=== PATIENT | male | born 1940 | race Hispanic/Latino ===

== ENCOUNTER 2016-06-05 07:51 | Inpatient (IN) | payer MEDICARE ==
[2016-06-05 07:54] VITALS: BMI 37.1
--- NOTE | 2016-06-05 07:57 | ED PDOC ---
Arrival/HPI - General Chief Complaint: Weakness/Neurological Deficit Time Seen by Provider: 06/05/16 07:53 Historian: Patient - History of Present Illness Narrative History of Present Illness (Text): 06/05/16 07:54 A 76 year old male presents to the emergency room for the evaluation of slurred speech and left sided facial droop since yesterday afternoon. Patient denies any weakness, numbness, headaches, dizziness, chest pain, shortness of breath, nausea, vomiting, diarrhea, or any other complaints. Patient reports that he was still experiencing the symptoms when he woke up this morning and decided to come to the ED. Patient states that he took 2 Aspirin before coming to the ED. Patient denies a history of smoking and notes that he is an occasional drinker. PMD: Dr. Haley Time/Duration: 24 hours Symptom Onset: Sudden Symptom Course: Unchanged Severity Level: Moderate Activities at Onset: Light Modifying Factors (Text): none Context: Home Associated Symptoms (Text): none 06/05/16 08:40 Yesterday afternoon the patient developed a left-sided facial droop along with slurred speech. He went to bed with the symptoms, and woke up this morning and still had symptoms so he decided to come to the emergency department. He did take aspirin prior to arrival this morning. No difficulty with ADLs. No headache. No chest pain palpitations or dyspnea. No nausea or vomiting. No numbness. No weakness. Patient is not a TPA candidate as his symptoms are too long Past Medical History - Provider Review Nursing Documentation Reviewed: Yes - Infectious Disease Hx of Infectious Diseases: None - Tetanus Immunization Tetanus Immunization: Up to Date - Cardiac Hx Hypertension: Yes Hx Pacemaker: No - Pulmonary Hx Respiratory Disorders: No - Neurological Hx Paralysis: No - HEENT Hx HEENT Disorder: No Hx Cataracts: Yes - Renal Hx Kidney Stones: Yes - Endocrine/Metabolic Hx Endocrine Disorders: No - Hematological/Oncological Hx Blood Transfusions: No - Integumentary Hx Dermatological Disorder: No - Musculoskeletal/Rheumatological Hx Musculoskeletal Disorders: Yes - Gastrointestinal Hx Gastrointestinal Disorders: No - Genitourinary/Gynecological Hx Genitourinary Disorders: Yes Other/Comment: bladder stones - Psychiatric Hx Emotional Abuse: No Hx Physical Abuse: No Hx Substance Use: No - Surgical History Other/Comment: Macular hole repair, umbilical hernia repair, adnoidectomy - Anesthesia Hx Anesthesia Reactions: No Hx Malignant Hyperthermia: No - Suicidal Assessment Feels Threatened In Home Enviroment: No Family/Social History - Physician Review Nursing Documentation Reviewed: Yes Family/Social History: No Known Family HX Smoking Status: Never Smoked Hx Alcohol Use: No Hx Substance Use: No Hx Substance Use Treatment: No Allergies/Home Meds Allergies/Adverse Reactions: Allergies milk Adverse Reaction (Verified 06/05/16 08:15) CONGESTION Home Medications: Home Meds Medication Instructions Recorded Confirmed Metoprolol Succinate [Toprol XL] 25 mg PO QAM 08/14/12 06/05/16 Spironolactone 25 mg PO BID 08/14/12 06/05/16 Potassium Chloride [K-Dur 20] 20 meq PO DAILY 09/06/13 06/05/16 Furosemide 40 mg PO BID 01/20/14 06/05/16 Cephalexin [Keflex] 500 mg PO TID 06/05/16 06/05/16 Review of Systems - Physician Review All systems were reviewed & negative as marked: Yes - Review of Systems Respiratory: absent: SOB Cardiovascular: absent: Chest Pain, Palpitations, Syncope Gastrointestinal: absent: Abdominal Pain, Diarrhea, Nausea, Vomiting Neurological: Speech Changes (Slurred speech), Facial Droop (Left sided). absent: Headache, Dizziness, Focal Weakness, Seizure, Other (Numbness) Physical Exam Vital Signs Reviewed: Yes Vital Signs Temp Pulse Resp BP Pulse Ox 06/05/16 09:35 67 18 153/95 H 95 06/05/16 07:54 97.6 F 81 20 170/102 H 96 Temperature: Afebrile Blood Pressure: Hypertensive Pulse: Regular Respiratory Rate: Normal Appearance: Positive for: Well-Appearing, Non-Toxic, Comfortable Pain Distress: None Mental Status: Positive for: Alert and Oriented X 3 - Systems Exam Head: Present: Atraumatic, Normocephalic Pupils: Present: PERRL Extroacular Muscles: Present: EOMI Conjunctiva: Present: Normal Ears: Present: NORMAL TM, Normal Canal. No: Erythema Mouth: Present: Moist Mucous Membranes Pharnyx: No: ERYTHEMA, EXUDATE, TONSILS ENLARGED Neck: Present: Normal Range of Motion. No: MIDLINE TENDERNESS, Paraspinal Tenderness Respiratory/Chest: Present: Clear to Auscultation, Good Air Exchange, Decreased Breath Sounds. No: Respiratory Distress, Accessory Muscle Use Cardiovascular: Present: Regular Rate and Rhythm, Normal S1, S2. No: Murmurs Abdomen: Present: Normal Bowel Sounds. No: Tenderness, Distention, Peritoneal Signs, Rebound, Guarding Back: No: CVA Tenderness, Midline Tenderness Upper Extremity: Present: Normal Inspection, Normal ROM, NORMAL PULSES, Neurovascularly Intact. No: Tenderness, Swelling Lower Extremity: Present: NORMAL PULSES, Normal ROM, Neurovascularly Intact. No : Normal Inspection, Tenderness, Swelling Neurological: Present: GCS=15, CN II-XII Intact, Motor Func Grossly Intact, Normal Cerebellar Funct, Memory Normal, Other (Left sided facial droop). No: Speech Normal (Slurred speech) Skin: Present: Warm, Dry, Normal Color. No: Rashes Psychiatric: Present: Alert, Oriented x 3, Normal Insight, Normal Concentration Medical Decision Making ED Course and Treatment: 06/05/16 08:01 Impression: A 76 year old male with slurred speech and left sided facial droop since yesterday. Slurred speech and left sided facial droop noted on PE. Plan: -- EKG -- Head CT -- CXR -- Labs Progress Notes: 06/05/16 08:43 EKG shows normal sinus rhythm rate approximately 75 with a primary AV block and right bundle branch block with no acute ST or T-wave changes and no old available for comparison - Lab Interpretations Lab Results: 06/05/16 07:30 06/05/16 07:30 Lab Results 06/05/16 09:20: Urine Color Yellow, Urine Appearance Clear, Urine pH 6.0, Ur Specific Philo 1.010, Urine Protein Negative, Urine Glucose (UA) Negative, Urine Ketones Negative, Urine Blood Trace-intact H, Urine Nitrate Negative, Urine Bilirubin Negative, Urine Urobilinogen 0.2, Ur Leukocyte Esterase Negative , Urine RBC 0 - 2, Urine WBC 1 - 3, Ur Epithelial Cells 1 - 3, Urine Bacteria Few 06/05/16 07:30: Sodium 138, Potassium 4.0, Chloride 103, Carbon Dioxide 24, Anion Gap 15, BUN 17, Creatinine 0.8, Est GFR ( Amer) > 60, Est GFR (Non- Af Amer) > 60, Random Glucose 150 H, Calcium 9.3, Magnesium 1.7, Total Bilirubin 0.8, AST 20, ALT 38, Alkaline Phosphatase 59, Lactate Dehydrogenase 393, Total Creatine Kinase 56, Troponin I < 0.01, Total Protein 7.4, Albumin 3.9 , Globulin 3.5, Albumin/Globulin Ratio 1.1 06/05/16 07:30: PT 10.8, INR 1.00, APTT 26.5 06/05/16 07:30: WBC 7.4, RBC 4.89, Hgb 15.5, Hct 44.1, MCV 90.2, MCH 31.7, MCHC 35.1, RDW 13.7, Plt Count 185, MPV 9.9, Gran % 66.3, Lymph % (Auto) 23.7, Humphreys % (Auto) 6.7 H, Eos % (Auto) 3.0, Baso % (Auto) 0.3, Gran # 4.88, Lymph # 1.7, Humphreys # 0.5, Eos # 0.2, Baso # 0.02 I have reviewed the lab results: Yes - RAD Interpretation Radiology Orders: 06/05/16 07:53 HEAD W/O CONTRAST [CT] Stat 06/05/16 07:54 CHEST PORTABLE [RAD] Stat CT scan of the head as read by the radiologist shows no acute findings Mechanical Lead: Radiologist NIHSS Scale (Irene) Time Performed: 08:04 - How Severe is the Stoke Baseline Level of Consciousness: 0=Alert LOC to Questions: 0=Both comments correct LOC to commands: 0=Obeys both correctly Best Gaze: 0=Normal Visual: 0=No visual loss Facial: 1=Minor asymmetry Motor Arm - Left: 0=No drift Motor Arm - Right: 0=No drift Motor Leg - Left: 0=No drift Motor Leg - Right: 0=No drift Limb Ataxia: 0=Absent Sensory: 0=Normal Best Language: 0=No aphasia Dysarthia: 1=Mild to moderate slurring Extinction & Inattention (Neglect): 0=Normal, no object Score: 2 Risk Level: Minor Stroke Risk - Notes Notes: Patient is not a TPA candidate since symptoms have lasted more than 15 hrs. - Scribe Statement The provider has reviewed the documentation as recorded by the Cricketibharriet Jefferson Provider Scribe Attestation: All medical record entries made by the Scribe were at my direction and personally dictated by me. I have reviewed the chart and agree that the record accurately reflects my personal performance of the history, physical exam, medical decision making, and the department course for this patient. I have also personally directed, reviewed, and agree with the discharge instructions and disposition. Disposition/Present on Arrival - Present on Arrival Any Indicators Present on Arrival: No History of DVT/PE: No History of Uncontrolled Diabetes: No Urinary Catheter: No History of Decub. Ulcer: No History Surgical Site Infection Following: None - Disposition Have Diagnosis and Disposition been Completed?: Yes Diagnosis: Cerebrovascular accident Disposition: HOSPITALIZED Disposition Time: 10:08 Patient Plan: Observation, Telemetry Condition: GOOD Referrals: Peng Haley MD [Primary Care Provider] - Follow up with primary
[2016-06-05 08:07] LABS: ADD MANUAL DIFF? NO
[2016-06-05 08:11] LABS: BASO # 0.02 K/mm3 (0.0-2.0); BASO % 0.3 % (0.0-3.0); EOS # 0.2 (0.0-0.7); GRAN # 4.88 (1.4-6.5); GRAN % 66.3 % (50.0-68.0); HEMATOCRIT 44.1 % (42.0-52.0); LYMPH # 1.7 (1.2-3.4); LYMPH % 23.7 % (22.0-35.0); MEAN CELL VOLUME 90.2 fL (80.0-105.0); MEAN CORPUSCULAR HEMOGLOBIN 31.7 pg (25.0-35.0); MEAN CORPUSCULAR HGB CONC 35.1 g/dl (31.0-37.0); MEAN PLATELET VOLUME 9.9 fl (7.0-11.0); MONO # 0.5 (0.1-0.6); MONO % 6.7 % (1.0-6.0); PLATELET COUNT 185 10^3/uL (120.0-450.0); RED CELL DISTRIBUTION WIDTH 13.7 % (11.5-14.5); WHITE BLOOD COUNT 7.4 10^3/ul (4.5-11.0)
[2016-06-05 08:25] LABS: PARTIAL THROMBOPLASTIN TIME 26.5 Seconds (23.7-30.8)
[2016-06-05 08:29] LABS: ALB/GLOB RATIO 1.1 (1.1-1.8); ALKALINE PHOSPHATASE 59 U/L (38-133); ALT/SGPT 38 U/L (7-56); AST/SGOT 20 U/L (15-59); BILIRUBIN,TOTAL 0.8 mg/dL (0.2-1.3); BLOOD UREA NITROGEN 17 mg/dL (7-21); CALCIUM 9.3 mg/dL (8.4-10.5); CARBON DIOXIDE 24 mmol/L (21-33); CHLORIDE 103 mmol/L (98-107); GFR AFRICAN-AMERICAN > 60; GLUCOSE,RANDOM 150 mg/dL (70-110); MAGNESIUM 1.7 mg/dL (1.7-2.2); SODIUM 138 mmol/L (132-148); TOTAL PROTEIN 7.4 g/dL (5.8-8.3)
[2016-06-05 08:42] LABS: TROPONIN I < 0.01 ng/mL
--- NOTE | 2016-06-05 08:53 | CT ---
PROCEDURE: CT HEAD WITHOUT CONTRAST. HISTORY: CVA COMPARISON: None available. TECHNIQUE: Axial computed tomography images were obtained through the head/brain without intravenous contrast. Radiation dose: Total exam DLP = 822.62 mGy-cm. This CT exam was performed using one or more of the following dose reduction techniques: Automated exposure control, adjustment of the mA and/or kV according to patient size, and/or use of iterative reconstruction technique. FINDINGS: HEMORRHAGE: No intracranial hemorrhage. BRAIN: Mild age-appropriate cerebral atrophy. No intracranial mass identified. VENTRICLES: Unremarkable. No hydrocephalus. CALVARIUM: Unremarkable. PARANASAL SINUSES: Unremarkable as visualized. No significant inflammatory changes. MASTOID AIR CELLS: Unremarkable as visualized. No inflammatory changes. OTHER FINDINGS: None. IMPRESSION: No intracranial mass, hemorrhage or evidence of acute infarct.
--- NOTE | 2016-06-05 09:25 | RAD ---
HISTORY: CVA COMPARISON: No prior. FINDINGS: LUNGS: No active pulmonary disease. PLEURA: No significant pleural effusion identified, no pneumothorax apparent. CARDIOVASCULAR: The heart appears enlarged. This may be artifactual due to portable technique as well as epicardial fat on the right side as demonstrated on CT examination of 12/01/2014. Sternotomy wires are noted. OSSEOUS STRUCTURES: No significant abnormalities. VISUALIZED UPPER ABDOMEN: Normal. OTHER FINDINGS: None. IMPRESSION: Apparent cardiomegaly, the the extent of which may be augmented by right epicardial fat. No acute infiltrate.
[2016-06-05 09:36] LABS: URINE BILIRUBIN NEGATIVE (NEGATIVE); URINE BLOOD TRACE-INTACT (NEGATIVE); URINE GLUCOSE (UA) NEGATIVE (NEGATIVE); URINE KETONE NEGATIVE (NEGATIVE); URINE LEUKOCYTE ESTERASE NEGATIVE Leu/uL (NEGATIVE); URINE PROTEIN NEGATIVE mg/dL (<30 mg/dL); URINE UROBILINOGEN 0.2 E.U./dL (<1 E.U./dL)
[2016-06-05 09:39] LABS: URINE APPEARANCE CLEAR (CLEAR); URINE COLOR YELLOW (YELLOW)
[2016-06-05 09:54] LABS: URINE BACTERIA FEW (NEG); URINE RBC 0 - 2 /hpf (0-2)
--- NOTE | 2016-06-05 11:22 | CP.PCM.HP ---
<Omid Gibson - Last Filed: 06/05/16 18:01> History of Present Illness - History of Present Illness History of Present Illness: cc: "slurred speech and L sided facial droop" HPI: Patient is a 76yo male with past medical history of DM type 2, HTN, CAD, Arthritis, nephrolithiasis that presented to ED c/o 1 day history of slurred speech and L sided facial droop. Patient noticed that his face had become puffy yesterday afternoon and shortly after at approximately 3:00pm noticed slurring of his speech. He reported taking 325mg of aspirin yesterday followed by another 325mg of aspirin the following morning. This morning he reported waking up with left-sided facial droop and decided to come into the hospital. Patient reported extensive family history of CVA and cardiac disorders in the family. In the ED, Head CT revealed no acute intracranial abnormalities. In recent travel history, he admitted to going to [place] over for a hunting trip. He admits slight sensitivity to light and diarrhea since yesterday. Denies chest pain, palpitations, SOB, abdominal pain, nausea, vomiting, headache, dizziness, vision changes, constipation, numbness/tingling, rashes, changes in sensation. 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 lives with , retired. Family Hx: mom - stroke, HTN. uncle - stroke. brother - stroke. paternal family - [place] Medications: keflex, acetaminophen/codeine, spironolactone, metoprolol, furosemide, potassium chloride PMD: Dr. Haley Present on Admission - Present on Admission Any Indicators Present on Admission: No Past Patient History - Infectious Disease Hx of Infectious Diseases: None - Tetanus Immunizations Tetanus Immunization: Up to Date - Past Social History Smoking Status: Never Smoked - CARDIAC Hx Hypertension: Yes Hx Pacemaker: No - PULMONARY Hx Respiratory Disorders: No - NEUROLOGICAL Hx Paralysis: No - HEENT Hx HEENT Problems: No Hx Cataracts: Yes - RENAL Hx Kidney Stones: Yes - ENDOCRINE/METABOLIC Hx Endocrine Disorders: No - HEMATOLOGICAL/ONCOLOGICAL Hx Blood Transfusions: No - INTEGUMENTARY Hx Dermatological Problems: No - MUSCULOSKELETAL/RHEUMATOLOGICAL Hx Musculoskeletal Disorders: Yes - GASTROINTESTINAL Hx Gastrointestinal Disorders: No - GENITOURINARY/GYNECOLOGICAL Hx Genitourinary Disorders: Yes Other/Comment: bladder stones - PSYCHIATRIC Hx Emotional Abuse: No Hx Physical Abuse: No Hx Substance Use: No - SURGICAL HISTORY Other/Comment: Macular hole repair, umbilical hernia repair, adnoidectomy - ANESTHESIA Hx Anesthesia Reactions: No Hx Malignant Hyperthermia: No Meds Allergies/Adverse Reactions: Allergies Allergy/AdvReac Type Severity Reaction Status Date / Time milk AdvReac CONGESTION Verified 06/05/16 08:15 Physical Exam - Constitutional Appears: Non-toxic, No Acute Distress - Head Exam Head Exam: ATRAUMATIC, NORMAL INSPECTION, NORMOCEPHALIC - Eye Exam Eye Exam: EOMI, PERRL - Neck Exam Neck exam: Positive for: Normal Inspection - Respiratory Exam Respiratory Exam: Clear to Auscultation Bilateral. absent: Rales, Rhonchi, Wheezes - Cardiovascular Exam Cardiovascular Exam: RRR, +S1, +S2. absent: Diastolic murmur, Gallop, JVD, Rubs , Systolic Murmur - GI/Abdominal Exam GI & Abdominal Exam: Normal Bowel Sounds, Soft. absent: Distended, Firm, Guarding, Rebound, Tenderness - Extremities Exam Extremities exam: Positive for: normal inspection. Negative for: pedal edema - Neurological Exam Neurological exam: Alert, Oriented x3 Additional comments: left-sided facial droop slurred speech motor strength 5/5 in bilateral upper and lower extremities sensation intact throughout PERRLA EOMI - Psychiatric Exam Psychiatric exam: Normal Affect, Normal Mood - Skin Skin Exam: Dry, Intact, Warm Additional comments: bilateral lower extremity cellulitis Results - Vital Signs Recent Vital Signs: Last Vital Signs Temp 97.6 F 06/05/16 07:54 Pulse 67 06/05/16 09:35 Resp 18 06/05/16 09:35 BP 153/95 H 06/05/16 09:35 Pulse Ox 95 06/05/16 09:35 - Labs Result Diagrams: 06/05/16 07:30 06/05/16 07:30 Assessment & Plan - Assessment and Plan (Free Text) Plan: 76yo male with history of HTN, DMT2, CAD, Arthritis presents c/o left-sided facial droop and slurred speech for 1 day prior to presentation 1. CVA -CT Head reviewed; revealed no acute intracranial abnormalities -MRI without contrast pending -Carotid doppler pending -Echocardiogram pending -Pending: A1C, lipid panel, TSH -EKG reviewed -Aspiration precautions -Neurochecks q4h -Physical therapy eval -Swallow eval -Neurology consulted - Dr. Mendosa -Cardiology consulted - Dr. Herrera 2. Hypertension -Continue home medications 3. CAD -Continue metoprolol, ASA, lipitor 4. DM type 2 -Fingersticks ACHS -NPO pending swallow eval -A1C pending 5. DVT/GI prophylaxis -Lovenox/Protonix Case discussed with attending, Dr. Haley - Date & Time Date: 06/05/16 Time: 14:23 <Peng Haley - Last Filed: 07/13/16 08:14> Results - Vital Signs Recent Vital Signs: Last Vital Signs Temp 98.1 F 06/07/16 12:00 Pulse 82 06/07/16 12:00 Resp 20 06/07/16 12:00 BP 127/71 06/07/16 12:00 Pulse Ox 96 06/07/16 06:00 - Labs Result Diagrams: 06/07/16 05:00 06/07/16 05:00 Attending/Attestation - Attestation I have personally seen and examined this patient.: Yes I have fully participated in the care of the patient.: Yes I have reviewed all pertinent clinical information: Yes Notes (Text): 07/13/16 08:14 Medical record note made by the resident after discussion with my direction and input after the patient was personally seen and examined by me. I have reviewed the chart and agree that the record reflects my personal performance of history, physical, data review and course for the patient that I have planned.
[2016-06-05 12:10] LABS: CHOLESTEROL 136 mg/dL (130-200)
--- NOTE | 2016-06-05 16:46 | US ---
PROCEDURE: Bilateral carotid artery duplex ultrasound HISTORY: Carotid stenosis PHYSICIAN(S): Jakc Bond MD. TECHNIQUE: Duplex sonography and color-flow Doppler were used to evaluate the carotid bifurcations and limited segments of the vertebral arteries bilaterally. The exam is somewhat limited by tortuous vessels. FINDINGS: There is mild smooth heterogeneous plaque noted at the carotid bifurcations bilaterally. The peak systolic velocity in the proximal right internal carotid artery is 76 cm/sec. This corresponds to a 20 to 39% proximal right ICA stenosis. Normal systolic velocities are noted in the proximal right external carotid artery. There is antegrade flow in the right vertebral artery. The peak systolic velocity in the proximal left internal carotid artery is 72 cm/sec. This corresponds to a 20 to 39% proximal left ICA stenosis. Normal systolic velocities are noted in the proximal left external carotid artery. There is antegrade flow in the left vertebral artery. IMPRESSION: 1. Bilateral 20-39% proximal ICA stenoses. 2. Antegrade flow in both vertebral arteries.
--- NOTE | 2016-06-05 18:15 | MRI ---
PROCEDURE: MRI BRAIN WITHOUT CONTRAST HISTORY: r/o CVA COMPARISON: Noncontrast head CT from the same day and MRI brain without contrast from 07/27/2015 TECHNIQUE: Multiplanar, multisequence MR images of the brain were obtained without intravenous contrast enhancement. FINDINGS: HEMORRHAGE: None DWI: There are focal areas of restricted diffusion in the right barry radiata and right posterior basal ganglia. BRAIN PARENCHYMA: There are moderate chronic microangiopathic changes. There are old lacunar infarctions in bilateral centrum semiovale. There is no mass, mass effect or abnormal extra-axial fluid collection. The midline sagittal structures are normal. VENTRICLES: There is moderate age-related global parenchymal volume loss and proportionate enlargement of the ventricles and cortical sulci. CRANIUM: There is normal bone marrow signal pattern. ORBITS: Grossly unremarkable. PARANASAL SINUSES/MASTOIDS: There is mild mucosal thickening in the ethmoid air cells. The remaining included paranasal sinuses and mastoid air cells are predominantly clear. VASCULAR SYSTEM: There are normal signal voids in the larger intracranial arteries. OTHER FINDINGS: None. IMPRESSION: Acute infarctions in the right barry radiata and right posterior basal ganglia. Moderate chronic microangiopathic changes and moderate age-related global parenchymal volume loss. The ordering resident Dr Omid Gibson was page by the mobile equipment operator but did not return the page as of 6:09 p.m. on 06/05/2016.
[2016-06-06 06:01] VITALS: RESP 20
[2016-06-06 07:15] LABS: ADD MANUAL DIFF? NO
[2016-06-06 07:24] LABS: BASO # 0.02 K/mm3 (0.0-2.0); BASO % 0.3 % (0.0-3.0); EOS # 0.3 (0.0-0.7); EOS % 3.3 % (1.5-5.0); GRAN # 5.17 (1.4-6.5); GRAN % 65.1 % (50.0-68.0); HEMATOCRIT 44.9 % (42.0-52.0); LYMPH # 1.8 (1.2-3.4); MEAN CELL VOLUME 90.2 fL (80.0-105.0); MEAN CORPUSCULAR HEMOGLOBIN 31.3 pg (25.0-35.0); MEAN CORPUSCULAR HGB CONC 34.7 g/dl (31.0-37.0); MEAN PLATELET VOLUME 9.8 fl (7.0-11.0); MONO # 0.7 (0.1-0.6); MONO % 8.3 % (1.0-6.0); PLATELET COUNT 202 10^3/uL (120.0-450.0); RED CELL DISTRIBUTION WIDTH 13.7 % (11.5-14.5); WHITE BLOOD COUNT 7.9 10^3/ul (4.5-11.0)
[2016-06-06 07:39] LABS: ALB/GLOB RATIO 1.1 (1.1-1.8); ALKALINE PHOSPHATASE 55 U/L (38-133); ALT/SGPT 31 U/L (7-56); AST/SGOT 28 U/L (15-59); BILIRUBIN,TOTAL 1.1 mg/dL (0.2-1.3); BLOOD UREA NITROGEN 16 mg/dL (7-21); CALCIUM 9.1 mg/dL (8.4-10.5); CARBON DIOXIDE 26 mmol/L (21-33); CHLORIDE 103 mmol/L (95-110); GFR AFRICAN-AMERICAN > 60; GLUCOSE,RANDOM 122 mg/dL (70-110); POTASSIUM 4.4 mmol/L (3.6-5.0); SODIUM 140 mmol/L (132-148); TOTAL PROTEIN 7.4 g/dL (5.8-8.3)
[2016-06-06] MEDS ORDERED: Metoprolol Succinate 25 mg XL Tab PO SCH (10:00)
[2016-06-06] MEDS ORDERED: Enoxaparin 30 mg Syringe SC SCH (10:00)
[2016-06-06] MEDS: Enoxaparin 40 mg Syringe SC SCH (11:02)
--- NOTE | 2016-06-06 11:23 | CP.PCM.PN ---
<Omid Gibson - Last Filed: 06/06/16 13:07> Subjective - Date & Time of Evaluation Date of Evaluation: 06/06/16 Time of Evaluation: 11:19 - Subjective Subjective: Medicine progress note - Omid Gibson PGY1 Patient seen and examined at bedside this morning. No acute overnight events or new complaints reported. Patient is eating and sleep well. Discussed results of MRI and current workup/plan. Patient to be seen by neurology. Denies chest pain , palpitations, SOB, abdominal pain, nausea, vomiting. Objective - Vital Signs/Intake and Output Vital Signs (last 24 hours): Temp Pulse Resp BP Pulse Ox 97.7 F 69 20 133/75 100 06/06/16 06:00 06/06/16 11:01 06/06/16 06:00 06/06/16 11:01 06/06/16 06:00 Intake and Output: 06/06/16 06/06/16 06:59 18:59 Intake Total 360 Output Total 525 Balance -165 - Medications Medications: Current Medications Aspirin (Aspirin) 325 mg PO DAILY [facility] Last Admin: 06/06/16 11:01 Dose: 325 mg Atorvastatin Calcium (Lipitor) 40 mg PO DIN [facility] Clopidogrel Bisulfate (Plavix) 75 mg PO DAILY [facility] Last Admin: 06/06/16 11:01 Dose: 75 mg Enoxaparin Sodium (Lovenox) 40 mg SC DAILY [facility] Last Admin: 06/06/16 11:02 Dose: 40 mg Furosemide (Lasix) 40 mg PO BID [facility] Metoprolol Succinate (Toprol Xl) 25 mg PO QAM [facility] Last Admin: 06/06/16 11:01 Dose: 25 mg Pantoprazole Sodium (Protonix Inj) 40 mg IVP DAILY [facility] Last Admin: 06/06/16 11:04 Dose: 40 mg Spironolactone (Aldactone) 25 mg PO BID [facility] - Labs Labs: 06/06/16 06:30 06/06/16 06:30 PT 10.8 Seconds (9.9-11.8) 06/05/16 07:30 INR 1.00 (0.93-1.08) 06/05/16 07:30 APTT 26.5 Seconds (23.7-30.8) 06/05/16 07:30 - Constitutional Appears: Well, Non-toxic, No Acute Distress - Head Exam Head Exam: ATRAUMATIC, NORMAL INSPECTION, NORMOCEPHALIC - Eye Exam Eye Exam: EOMI, PERRL - ENT Exam ENT Exam: Mucous Membranes Moist - Neck Exam Neck Exam: Normal Inspection - Respiratory Exam Respiratory Exam: Clear to Ausculation Bilateral. absent: Rales, Rhonchi, Wheezes - Cardiovascular Exam Cardiovascular Exam: REGULAR RHYTHM, +S1, +S2. absent: Gallop, Rubs, Murmur - GI/Abdominal Exam GI & Abdominal Exam: Soft, Normal Bowel Sounds. absent: Distended, Firm, Guarding, Tenderness - Neurological Exam Neurological Exam: Alert, Awake, Oriented x3 Additional comments: left-sided facial droop slurred speech motor strength 5/5 in bilateral upper and lower extremities sensation intact throughout PERRLA EOMI - Psychiatric Exam Psychiatric exam: Normal Affect, Normal Mood - Skin Skin Exam: Dry, Intact, Warm Additional comments: bilateral lower extremity cellulitis Assessment and Plan - Assessment and Plan (Free Text) Plan: 76yo male with history of HTN, DMT2, CAD, Arthritis presents c/o left-sided facial droop and slurred speech for 1 day prior to presentation 1. CVA -CT Head reviewed; revealed no acute intracranial abnormalities -MRI without contrast reviewed; acute infarct in the right barry radiata and right posterior basal ganglia; see full report -Carotid doppler reviewed; bilateral 20-39% proximal ICA stenosis; antegrade flow in both vertebral arteries; see full report -Echocardiogram pending -A1C, lipid panel, TSH reviewed -EKG reviewed -Aspiration precautions -Neurochecks q4h -Physical therapy eval/treat -Swallow eval reviewed -Speech eval -Continue ASA, plavix, lipitor -Dysphagia diet with nectar thick liquids as per swallow eval -Neurology consulted - Dr. Mendosa -Cardiology consulted - Dr. Herrera 2. Hypertension -Continue home medications 3. CAD -Continue metoprolol, ASA, lipitor 4. DM type 2 -Fingersticks ACHS -NPO pending swallow eval -A1C elevated, consistent with DM2 5. DVT/GI prophylaxis -Lovenox/Protonix Case discussed with attending, Dr. Haley <Peng Haley - Last Filed: 07/13/16 08:15> Objective - Vital Signs/Intake and Output Vital Signs (last 24 hours): Temp Pulse Resp BP Pulse Ox 98.1 F 82 20 127/71 96 06/07/16 12:00 06/07/16 12:00 06/07/16 12:00 06/07/16 12:00 06/07/16 06:00 - Labs Labs: 06/07/16 05:00 06/07/16 05:00 PT 10.8 Seconds (9.9-11.8) 06/05/16 07:30 INR 1.00 (0.93-1.08) 06/05/16 07:30 APTT 26.5 Seconds (23.7-30.8) 06/05/16 07:30 Attending/Attestation - Attestation I have personally seen and examined this patient.: Yes I have fully participated in the care of the patient.: Yes I have reviewed all pertinent clinical information, including history, physical exam and plan: Yes Notes (Text): 07/13/16 08:15 Medical record note made by the resident after discussion with my direction and input after the patient was personally seen and examined by me. I have reviewed the chart and agree that the record reflects my personal performance of history, physical, data review and course for the patient that I have planned.
--- NOTE | 2016-06-06 13:19 | CARD ---
APPROVED REPORT EKG Measurement Heart [id number] <Conclusion> Sinus rhythm with 1st degree AV block Right bundle branch block Abnormal ECG
--- NOTE | 2016-06-06 13:42 | CON ---
DATE: 06/06/2016 HISTORY OF PRESENT ILLNESS: The patient is a 76-year-old male who comes with new focal deficits with dysphagia as well as a facial droop. PAST MEDICAL HISTORY: Includes coronary artery bypass surgery. His last stress test less than a yea r ago revealed no active ischemia with good LV function. CARDIAC RISK FACTORS: Include his hypertension, diabetes mellitus and hypercholesterolemia. SOCIAL HISTORY: He does not smoke. REVIEW OF SYSTEMS: A 14-point review of systems was reviewed in detail. No cardiac symptomatology i s noted. PHYSICAL EXAMINATION: VITAL SIGNS: The blood pressure is 133/75. The heart rate is in the 60s, normal sinus rhythm. NECK: Negative JVD. LUNGS: Without rales. HEART: Reveals S1, S2. EXTREMITIES: Without edema. NEUROLOGICAL: The patient is oriented x 3. There is a left facial droop that has improved since adm ission. EKG shows normal sinus rhythm with first degree AV block and an incomplete right bundle branch block. LABORATORIES: BUN and creatinine are unremarkable. The glucose is 122. The hemoglobin is 15.6. IMPRESSION: 1. Cerebrovascular accident. 2. Stable angina. 3. Status post coronary artery bypass surgery. 4. Coronary artery disease. 5. Diabetes mellitus. 6. Hypercholesterolemia. 7. Hypertension. 8. Obesity. 9. First degree heart block. PLAN: Given these findings, the patient was started on aspirin and Plavix. There is no significant carotid disease. We will discontinue his Lopressor given his first degree heart block and mild conduction defects. Jack Herrera MD cc: [id number] TT: 06/06/2016 13:41:43 Confirmation # [id number] Dictation # [id number] sn
--- NOTE | 2016-06-06 21:37 | CON ---
DATE: 06/06/2016 HISTORY OF PRESENT ILLNESS: A 76-year-old male with past medical history of diabetes, hypertension, coronary artery disease and came with a history of slurred speech and left facial droop. CAT scan of the head was negative. An MRI of the head showed a right barry radiata infarct and called to evalu ate the patient. PAST MEDICAL HISTORY: Diabetes, hypertension, coronary artery disease and coronary artery bypass. ALLERGIES: Denies. LACTOSE INTOLERANT, ALLERGIC TO MILK. SOCIAL HISTORY: Does not smoke, does not drink, lives with , retired. HOME MEDICATIONS: Metoprolol and furosemide. PHYSICAL EXAMINATION: HEENT: Normocephalic, atraumatic. NECK: Supple. NEUROLOGIC: Alert, awake, oriented x 3. No aphasia. Cranial nerves II through XII were tested. Pu pils reactive. EOM intact. Visual riddel full. No facial asymmetry. Tongue midline. Motor examin ation: Moves all the extremities equally. Tone normal. Deep tendon reflexes 1+. Both plantars are downgoing. Sensory appears intact. Cerebellar gait, sitting on the edge of the bed comfortably. VITAL SIGNS: Blood pressure 153/95. LABORATORY DATA: WBC 7.4, hemoglobin 15.5, hematocrit 44.1, platelets 185. Sodium 138, potassium 4, chloride 103, CO2 of 24, glucose , BUN 17, creatinine 0.8. IMPRESSION: A 76-year-old male with past medical history of hypertension, diabetes, coronary artery disease, came with left facial droop and slurred speech and MRI showed left hemispheric stroke. Wor kup is in progress. PLAN: Continue present management and we will follow up. Tad Mendosa MD cc: [id number] TT: 06/06/2016 21:37:10 Confirmation # [id number] Dictation # [id number] ln
[2016-06-07 06:10] VITALS: O2SAT 96
[2016-06-07 06:57] LABS: ADD MANUAL DIFF? NO
[2016-06-07 07:06] LABS: BASO # 0.02 K/mm3 (0.0-2.0); BASO % 0.2 % (0.0-3.0); EOS # 0.3 (0.0-0.7); EOS % 3.1 % (1.5-5.0); GRAN # 5.63 (1.4-6.5); GRAN % 67.4 % (50.0-68.0); HEMATOCRIT 48.2 % (42.0-52.0); LYMPH # 1.7 (1.2-3.4); LYMPH % 20.3 % (22.0-35.0); MEAN CELL VOLUME 90.3 fL (80.0-105.0); MEAN CORPUSCULAR HEMOGLOBIN 31.5 pg (25.0-35.0); MEAN CORPUSCULAR HGB CONC 34.9 g/dl (31.0-37.0); MONO # 0.8 (0.1-0.6); PLATELET COUNT 195 10^3/uL (120.0-450.0); RED CELL DISTRIBUTION WIDTH 13.7 % (11.5-14.5); WHITE BLOOD COUNT 8.4 10^3/ul (4.5-11.0)
[2016-06-07 07:28] LABS: ALB/GLOB RATIO 1.2 (1.1-1.8); ALKALINE PHOSPHATASE 58 U/L (38-133); ALT/SGPT 37 U/L (7-56); AST/SGOT 32 U/L (15-59); BILIRUBIN,TOTAL 1.4 mg/dL (0.2-1.3); BLOOD UREA NITROGEN 19 mg/dL (7-21); CALCIUM 9.6 mg/dL (8.4-10.5); CARBON DIOXIDE 29 mmol/L (21-33); CHLORIDE 102 mmol/L (98-107); GFR AFRICAN-AMERICAN > 60; GLUCOSE,RANDOM 126 mg/dL (70-110); SODIUM 140 mmol/L (132-148); TOTAL PROTEIN 8.2 g/dL (5.8-8.3)
[2016-06-07 07:44] LABS: POTASSIUM 4.1 mmol/L (3.6-5.0)
--- NOTE | 2016-06-07 08:52 | PN ---
DATE: 06/07/2016 The patient's facial asymmetry is improving. PHYSICAL EXAMINATION: VITAL SIGNS: Blood pressure varies from 132 systolic to 145 systolic. Heart rate is in the 80s, nor mal sinus rhythm. The OR interval is still prolonged. NECK: Negative JVD. LUNGS: Without rales. HEART: Reveals S1, S2. EXTREMITIES: Without edema. LABORATORIES: BUN and creatinine are unremarkable. The glucose is 126, hemoglobin is 16.8. Echocardiogram is pending. IMPRESSION: 1. Cerebrovascular accident. 2. Hypertension. 3. Coronary artery disease. 4. First degree heart block. History of coronary artery bypass surgery. 5. Hypercholesterolemia. 6. Diabetes mellitus. Given these findings, will discontinue the beta blockers given the first degree heart block. Will ad d an ARB for better blood pressure control. I have discussed with the patient about his dietary guzman ges. Will discontinue telemetry today. Jack Herrera MD cc: [id number] TT: 06/07/2016 08:52:03 Confirmation # [id number] Dictation # [id number] mn
[2016-06-07] MEDS: Enoxaparin 40 mg Syringe SC SCH (09:07)
--- NOTE | 2016-06-07 09:55 | PN ---
DATE: 06/07/2016 ADDENDUM Preliminary echocardiogram reveals good LV function, aortic valvular sclerosis without stenosis and n o LV thrombus. We will discontinue telemetry. Kim has been added. Jack Herrera MD cc: [id number] TT: 06/07/2016 09:08:07 Confirmation # [id number] Dictation # [id number] jn
--- NOTE | 2016-06-07 10:39 | CP.PCM.DIS ---
<Omid Gibson - Last Filed: 06/10/16 11:27> Provider - Provider Date of Admission: 06/05/16 10:20 Attending physician: Peng Haley MD Primary care physician: Peng Haley MD Consults: Cardiology - Dr. Herrera Neurology - Dr. Mendosa Time Spent in preparation of Discharge (in minutes): 30 Hospital Course - Lab Results Lab Results: Most Recent Lab Values WBC 8.4 10^3/ul (4.5-11.0) 06/07/16 05:00 RBC 5.34 10^6/uL (3.5-6.1) 06/07/16 05:00 Hgb 16.8 gm/dL (14.0-18.0) 06/07/16 05:00 Hct 48.2 % (42.0-52.0) 06/07/16 05:00 MCV 90.3 fL (80.0-105.0) 06/07/16 05:00 MCH 31.5 pg (25.0-35.0) 06/07/16 05:00 MCHC 34.9 g/dl (31.0-37.0) 06/07/16 05:00 RDW 13.7 % (11.5-14.5) 06/07/16 05:00 Plt Count 195 10^3/uL (120.0-450.0) 06/07/16 05:00 MPV 10.0 fl (7.0-11.0) 06/07/16 05:00 Gran % 67.4 % (50.0-68.0) 06/07/16 05:00 Lymph % (Auto) 20.3 % (22.0-35.0) L 06/07/16 05:00 Maury % (Auto) 9.0 % (1.0-6.0) H 06/07/16 05:00 Eos % (Auto) 3.1 % (1.5-5.0) 06/07/16 05:00 Baso % (Auto) 0.2 % (0.0-3.0) 06/07/16 05:00 Gran # 5.63 (1.4-6.5) 06/07/16 05:00 Lymph # 1.7 (1.2-3.4) 06/07/16 05:00 Maury # 0.8 (0.1-0.6) H 06/07/16 05:00 Eos # 0.3 (0.0-0.7) 06/07/16 05:00 Baso # 0.02 K/mm3 (0.0-2.0) 06/07/16 05:00 PT 10.8 Seconds (9.9-11.8) 06/05/16 07:30 INR 1.00 (0.93-1.08) 06/05/16 07:30 APTT 26.5 Seconds (23.7-30.8) 06/05/16 07:30 Sodium 140 mmol/L (132-148) 06/07/16 05:00 Potassium 4.1 mmol/L (3.6-5.0) 06/07/16 05:00 Chloride 102 mmol/L (98-107) 06/07/16 05:00 Carbon Dioxide 29 mmol/L (21-33) 06/07/16 05:00 Anion Gap 13 (10-20) 06/07/16 05:00 BUN 19 mg/dL (7-21) 06/07/16 05:00 Creatinine 0.8 mg/dL (0.5-1.4) 06/07/16 05:00 Est GFR ( Amer) > 60 06/07/16 05:00 Est GFR (Non-Af Amer) > 60 06/07/16 05:00 POC Glucose (mg/dL) 134 mg/dL (65-110) H 06/07/16 07:13 Random Glucose 126 mg/dL (70-110) H 06/07/16 05:00 Hemoglobin A1c 6.9 % (4.2-6.5) H 06/05/16 11:38 Calcium 9.6 mg/dL (8.4-10.5) 06/07/16 05:00 Magnesium 1.7 mg/dL (1.7-2.2) 06/05/16 07:30 Total Bilirubin 1.4 mg/dL (0.2-1.3) H 06/07/16 05:00 AST 32 U/L (15-59) 06/07/16 05:00 ALT 37 U/L (7-56) 06/07/16 05:00 Alkaline Phosphatase 58 U/L (38-133) 06/07/16 05:00 Lactate Dehydrogenase 393 U/L (333-699) 06/05/16 07:30 Total Creatine Kinase 56 U/L (35-230) 06/05/16 07:30 Troponin I < 0.01 ng/mL 06/05/16 07:30 Total Protein 8.2 g/dL (5.8-8.3) 06/07/16 05:00 Albumin 4.5 g/dL (3.0-4.8) 06/07/16 05:00 Globulin 3.8 gm/dL 06/07/16 05:00 Albumin/Globulin Ratio 1.2 (1.1-1.8) 06/07/16 05:00 Triglycerides 90 mg/dL (35-160) 06/05/16 11:38 Cholesterol 136 mg/dL (130-200) 06/05/16 11:38 LDL Cholesterol Direct 67 mg/dL (0-129) 06/05/16 11:38 HDL Cholesterol 45 mg/dL (29-60) 06/05/16 11:38 TSH 3rd Generation 3.16 mIU/mL (0.46-4.68) 06/05/16 11:38 Urine Color Yellow (YELLOW) 06/05/16 09:20 Urine Appearance Clear (CLEAR) 06/05/16 09:20 Urine pH 6.0 (4.7-8.0) 06/05/16 09:20 Ur Specific [place] 1.010 (1.005-1.035) 06/05/16 09:20 Urine Protein Negative mg/dL (<30 mg/dL) 06/05/16 09:20 Urine Glucose (UA) Negative mg/dL (NEGATIVE) 06/05/16 09:20 Urine Ketones Negative mg/dL (NEGATIVE) 06/05/16 09:20 Urine Blood Trace-intact (NEGATIVE) H 06/05/16 09:20 Urine Nitrate Negative (NEGATIVE) 06/05/16 09:20 Urine Bilirubin Negative (NEGATIVE) 06/05/16 09:20 Urine Urobilinogen 0.2 E.U./dL (<1 E.U./dL) 06/05/16 09:20 Ur Leukocyte Esterase Negative Sergio/uL (NEGATIVE) 06/05/16 09:20 Urine RBC 0 - 2 /hpf (0-2) 06/05/16 09:20 Urine WBC 1 - 3 /hpf (0-6) 06/05/16 09:20 Ur Epithelial Cells 1 - 3 /hpf (0-5) 06/05/16 09:20 Urine Bacteria Few (NEG) 06/05/16 09:20 - Hospital Course Hospital Course: Patient is a 76yo male with PMHx of DM type 2, HTN, CAD, arthritis, and nephrolithiasis who presented to ED c/o 1 day history of slurred speech and L sided facial droop. During the initial interview, patient admitted to extensive family history of stroke. Pt has never experienced something like this before. Initial head CT showed no intracranial mass, hemorrhage or evidence of acute infarct. CXR showed apparent cardiomegaly but no acute infiltrate. EKG showed sinus rhythm with 1st degree AV block and RBBB. Cardiology was consulted as part of CVA work up. Carotid & vertebral artery ultrasound showed bilateral 20-39% proximal ICA stenoses and anterograde flow in both vertebral arteries. Echocardiagram was also performed, which showed EF of 53.2% with mild concentric LVH, trace aortic regurgitation, mild mitral and tricuspid regurgitation. No vegetation or thrombus was noted. On brain MRI, it was discovered that there are acute infarctions in the right barry radiata and right posterior basal ganglia. Neurology evaluated the patient in addition to swallow evaluation/treatment and speech therapy. Patient began antiplatelet therapy with aspirin and plavix. Pt was discharged with dysphagia level III diet guide and advised to f/u with speech therapy, PMD, sub arc operator and neurologist within 1 week of discharge. Patient was advised to return to the emergency room if he should have worsening symptoms or change in severity/ quality. Discharge Exam - Head Exam Head Exam: ATRAUMATIC, NORMAL INSPECTION, NORMOCEPHALIC - Eye Exam Eye Exam: EOMI, PERRL - ENT Exam ENT Exam: Mucous Membranes Moist - Neck Exam Neck exam: Normal Inspection - Respiratory Exam Respiratory Exam: Clear to PA & Lateral, NORMAL BREATHING PATTERN. absent: Accessory Muscle Use, Rales, Rhonchi, Wheezes, Respiratory Distress - Cardiovascular Exam Cardiovascular Exam: RRR, +S1, +S2. absent: Bradycardia, Tachycardia, Gallop, JVD, Rubs - GI/Abdominal Exam GI & Abdominal Exam: Normal Bowel Sounds, Soft, Unremarkable. absent: Distended , Firm, Rebound, Rigid, Tenderness - Neurological Exam Neurological exam: Alert, CN II-XII Intact, Normal Gait, Oriented x3 Additional comments: motor strength 5/5 bilaterally in upper and lower extremities sensory intact throughout CN 2-12 intact PERRLA, EOMI - Psychiatric Exam Psychiatric exam: Normal Affect, Normal Mood - Skin Skin Exam: Dry, Intact, Normal Color, Warm Discharge Plan - Discharge Medications Prescriptions: Atorvastatin [Lipitor] 40 mg PO DIN #30 tab Clopidogrel [Plavix] 75 mg PO DAILY #30 tab Losartan [Cozaar] 100 mg PO DAILY #30 tab - Follow Up Plan Condition: GOOD Disposition: HOME/ ROUTINE Instructions: Ischemic Stroke (DC), Ischemic Stroke (GEN), Level 3 National Dysphagia Diet (DC), Level 3 National Dysphagia Diet (GEN) Additional Instructions: 1. Follow up with your primary doctor, Dr. Haley within 1-2 weeks 2. Follow up with your sub arc operator, Dr. Herrera within 1-2 weeks 3. Follow up with your neurologist, Dr. Madrid within 1-2 weeks 4. Read the instructions provided to you regarding dietary choices for swallowing issues post stroke 5. Fill the medications prescribed to you and take as directed 6. Return to the emergency room should you feel unwell or have worsening of your symptoms Referrals: Peng Haley MD [Primary Care Provider] - <Peng Haley - Last Filed: 07/13/16 08:16> Provider - Provider Date of Admission: 06/05/16 10:20 Attending physician: Peng Haley MD Primary care physician: Peng Haley MD Hospital Course - Lab Results Lab Results: Most Recent Lab Values WBC 8.4 10^3/ul (4.5-11.0) 06/07/16 05:00 RBC 5.34 10^6/uL (3.5-6.1) 06/07/16 05:00 Hgb 16.8 gm/dL (14.0-18.0) 06/07/16 05:00 Hct 48.2 % (42.0-52.0) 06/07/16 05:00 MCV 90.3 fL (80.0-105.0) 06/07/16 05:00 MCH 31.5 pg (25.0-35.0) 06/07/16 05:00 MCHC 34.9 g/dl (31.0-37.0) 06/07/16 05:00 RDW 13.7 % (11.5-14.5) 06/07/16 05:00 Plt Count 195 10^3/uL (120.0-450.0) 06/07/16 05:00 MPV 10.0 fl (7.0-11.0) 06/07/16 05:00 Gran % 67.4 % (50.0-68.0) 06/07/16 05:00 Lymph % (Auto) 20.3 % (22.0-35.0) L 06/07/16 05:00 Maury % (Auto) 9.0 % (1.0-6.0) H 06/07/16 05:00 Eos % (Auto) 3.1 % (1.5-5.0) 06/07/16 05:00 Baso % (Auto) 0.2 % (0.0-3.0) 06/07/16 05:00 Gran # 5.63 (1.4-6.5) 06/07/16 05:00 Lymph # 1.7 (1.2-3.4) 06/07/16 05:00 Maury # 0.8 (0.1-0.6) H 06/07/16 05:00 Eos # 0.3 (0.0-0.7) 06/07/16 05:00 Baso # 0.02 K/mm3 (0.0-2.0) 06/07/16 05:00 PT 10.8 Seconds (9.9-11.8) 06/05/16 07:30 INR 1.00 (0.93-1.08) 06/05/16 07:30 APTT 26.5 Seconds (23.7-30.8) 06/05/16 07:30 Sodium 140 mmol/L (132-148) 06/07/16 05:00 Potassium 4.1 mmol/L (3.6-5.0) 06/07/16 05:00 Chloride 102 mmol/L (98-107) 06/07/16 05:00 Carbon Dioxide 29 mmol/L (21-33) 06/07/16 05:00 Anion Gap 13 (10-20) 06/07/16 05:00 BUN 19 mg/dL (7-21) 06/07/16 05:00 Creatinine 0.8 mg/dL (0.5-1.4) 06/07/16 05:00 Est GFR ( Amer) > 60 06/07/16 05:00 Est GFR (Non-Af Amer) > 60 06/07/16 05:00 POC Glucose (mg/dL) 156 mg/dL (65-110) H 06/07/16 11:20 Random Glucose 126 mg/dL (70-110) H 06/07/16 05:00 Hemoglobin A1c 6.9 % (4.2-6.5) H 06/05/16 11:38 Calcium 9.6 mg/dL (8.4-10.5) 06/07/16 05:00 Magnesium 1.7 mg/dL (1.7-2.2) 06/05/16 07:30 Total Bilirubin 1.4 mg/dL (0.2-1.3) H 06/07/16 05:00 AST 32 U/L (15-59) 06/07/16 05:00 ALT 37 U/L (7-56) 06/07/16 05:00 Alkaline Phosphatase 58 U/L (38-133) 06/07/16 05:00 Lactate Dehydrogenase 393 U/L (333-699) 06/05/16 07:30 Total Creatine Kinase 56 U/L (35-230) 06/05/16 07:30 Troponin I < 0.01 ng/mL 06/05/16 07:30 Total Protein 8.2 g/dL (5.8-8.3) 06/07/16 05:00 Albumin 4.5 g/dL (3.0-4.8) 06/07/16 05:00 Globulin 3.8 gm/dL 06/07/16 05:00 Albumin/Globulin Ratio 1.2 (1.1-1.8) 06/07/16 05:00 Triglycerides 90 mg/dL (35-160) 06/05/16 11:38 Cholesterol 136 mg/dL (130-200) 06/05/16 11:38 LDL Cholesterol Direct 67 mg/dL (0-129) 06/05/16 11:38 HDL Cholesterol 45 mg/dL (29-60) 06/05/16 11:38 TSH 3rd Generation 3.16 mIU/mL (0.46-4.68) 06/05/16 11:38 Urine Color Yellow (YELLOW) 06/05/16 09:20 Urine Appearance Clear (CLEAR) 06/05/16 09:20 Urine pH 6.0 (4.7-8.0) 06/05/16 09:20 Ur Specific [place] 1.010 (1.005-1.035) 06/05/16 09:20 Urine Protein Negative mg/dL (<30 mg/dL) 06/05/16 09:20 Urine Glucose (UA) Negative mg/dL (NEGATIVE) 06/05/16 09:20 Urine Ketones Negative mg/dL (NEGATIVE) 06/05/16 09:20 Urine Blood Trace-intact (NEGATIVE) H 06/05/16 09:20 Urine Nitrate Negative (NEGATIVE) 06/05/16 09:20 Urine Bilirubin Negative (NEGATIVE) 06/05/16 09:20 Urine Urobilinogen 0.2 E.U./dL (<1 E.U./dL) 06/05/16 09:20 Ur Leukocyte Esterase Negative Sergio/uL (NEGATIVE) 06/05/16 09:20 Urine RBC 0 - 2 /hpf (0-2) 06/05/16 09:20 Urine WBC 1 - 3 /hpf (0-6) 06/05/16 09:20 Ur Epithelial Cells 1 - 3 /hpf (0-5) 06/05/16 09:20 Urine Bacteria Few (NEG) 06/05/16 09:20 Attending/Attestation - Attestation I have personally seen and examined this patient.: Yes I have fully participated in the care of the patient.: Yes I have reviewed all pertinent clinical information, including history, physical exam and plan: Yes Notes (Text): 07/13/16 08:16 Medical record note made by the resident after discussion with my direction and input after the patient was personally seen and examined by me. I have reviewed the chart and agree that the record reflects my personal performance of history, physical, data review and course for the patient that I have planned.
[2016-06-07 12:11] VITALS: BP 127/71; PULSE 82; TEMP 98.1
--- NOTE | 2016-06-07 14:27 | CARD ---
APPROVED REPORT EXAM: Two-dimensional and M-mode echocardiogram with Doppler and color Doppler. INDICATION CVA/TIA 2D DIMENSIONS Left Atrium (2D)3.0 (1.6-4.0cm)IVSd1.1 (0.7-1.1cm) LVDd4.9 (3.9-5.9cm)PWd1.3 (0.7-1.1cm) LVDs3.5 (2.5-4.0cm)FS (%) 27.5 % LVEF (%)53.2 (>50%) M-Mode DIMENSIONS Aortic Root3.60 (2.2-3.7cm)Aortic Cusp Exc.1.80 (1.5-2.0cm) Aortic Valve AoV Peak Pdcyvomd279.0cm/Tameka Peak GR.7mmHg Mitral Valve MV E Bgeyipvq63.5cm/sMV A Efralvvz07.1cm/sE/A ratio0.7 TDI E/Lateral E'0.0E/Medial E'0.0 Tricuspid Valve TR Peak Whagtktt777py/sRAP [id number] Peak Gr.14mmHg [id number] LEFT VENTRICLE The left ventricle is normal size. There is mild concentric left ventricular hypertrophy. The left ventricular function is normal.EF-55% There is normal LV segmental wall motion. Transmitral Doppler flow pattern is Grade III-reversible restrictive diastolic dysfunction. No left ventricle thrombus noted on this study. There is no ventricular septal defect visualized. There is no left ventricular aneurysm. There is no mass noted in the left ventricle. RIGHT VENTRICLE The right ventricle is normal size. There is normal right ventricular wall thickness. The right ventricular systolic function is normal. ATRIA The left atrium size is normal. The right atrium size is normal. The interatrial septum is intact with no evidence for an atrial septal defect. AORTIC VALVE The aortic valve is thickened but opens well. The aortic valve is moderately thickened. There is trace aortic regurgitation. There is no aortic valvular stenosis. There is no aortic valvular vegetation. MITRAL VALVE The mitral valve is thickened but opens well. Mitral annular calcification is mild. Mitral regurgitation is mild. There is no mitral valve stenosis. There is no evidence of mitral valve prolapse. TRICUSPID VALVE The tricuspid valve leaflets are thickened , but open well. There is trace tricuspid regurgitation. There is no tricuspid valve stenosis. There is no tricuspid valve prolapse or vegetation. PULMONIC VALVE The pulmonic valve is not well visualized. GREAT VESSELS The aortic root is normal in size. The ascending aorta is normal in size. The pulmonary artery is normal. The IVC is normal in size and collapses >50% with inspiration. PERICARDIAL EFFUSION There is no pleural effusion. There is no pericardial effusion. <Conclusion> The left ventricle is normal size. There is mild concentric left ventricular hypertrophy. The left ventricular function is normal.EF-55% There is trace aortic regurgitation. Mitral regurgitation is mild. There is trace tricuspid regurgitation. There is no pericardial effusion. No vegetation or thrombus noted.
== END 2016-06-07 13:43 | disposition home or self-care (01) | DRG 66 ==
LOC: ED 07:51 → ERH 10:20 → OBSVTOIN 10:20 → ERH 17:09 → 2RSO 17:47
PROVIDERS: ADMIT Internal Medicine; ATTEND Internal Medicine
DX: I63.9 Cerebral infarction, unspecified (principal); I44.0 Atrioventricular block, first degree; E11.9 Type 2 diabetes mellitus without complications; I10 Essential (primary) hypertension; I25.118 Atherosclerotic heart disease of native coronary artery with other forms of angina pectoris; R29.702 NIHSS score 2; E66.9 Obesity, unspecified; R47.81 Slurred speech; R29.810 Facial weakness; H40.9 Unspecified glaucoma; E78.00 Pure hypercholesterolemia, unspecified; M19.90 Unspecified osteoarthritis, unspecified site; Z68.36 Body mass index [BMI] 36.0-36.9, adult; Z95.1 Presence of aortocoronary bypass graft

== ENCOUNTER 2016-12-25 11:55 | Inpatient (IN) | payer MEDICARE ==
[2016-12-25 12:07] VITALS: BMI 38.9
[2016-12-25 12:31] LABS: BASO # 0.03 K/mm3 (0.0-2.0); BASO % 0.4 % (0.0-3.0); EOS # 0.2 (0.0-0.7); EOS % 2.4 % (1.5-5.0); GRAN # 5.14 (1.4-6.5); GRAN % 62.6 % (50.0-68.0); LYMPH # 2.1 (1.2-3.4); LYMPH % 25.5 % (22.0-35.0); MEAN CELL VOLUME 93.1 fl (80.0-105.0); MEAN CORPUSCULAR HEMOGLOBIN 32.5 pg (25.0-35.0); MEAN CORPUSCULAR HGB CONC 34.9 g/dl (31.0-37.0); MEAN PLATELET VOLUME 9.5 fl (7.0-11.0); MONO # 0.8 (0.1-0.6); MONO % 9.1 % (1.0-6.0); RED CELL DISTRIBUTION WIDTH 13.4 % (11.5-14.5); WHITE BLOOD COUNT 8.2 10^3/ul (4.5-11.0)
[2016-12-25 12:40] LABS: INR 1.09 (0.93-1.08)
[2016-12-25 12:47] LABS: ALB/GLOB RATIO 1.4 (1.1-1.8); ALKALINE PHOSPHATASE 53 U/L (38-126); ALT/SGPT 37 U/L (7-56); AST/SGOT 26 U/L (17-59); BILIRUBIN,TOTAL 0.9 mg/dL (0.2-1.3); BLOOD UREA NITROGEN 21 mg/dL (7-21); CALCIUM 9.8 mg/dL (8.4-10.5); CARBON DIOXIDE 27 mmol/L (21-33); CHLORIDE 104 mmol/L (98-107); GFR AFRICAN-AMERICAN > 60; GLUCOSE,RANDOM 118 mg/dL (70-110); SODIUM 139 mmol/L (132-148); TOTAL PROTEIN 7.2 g/dL (5.8-8.3)
--- NOTE | 2016-12-25 13:10 | ED PDOC ---
Arrival/HPI - General Chief Complaint: Dizziness/Lightheaded Time Seen by Provider: 12/25/16 12:36 Historian: Patient - History of Present Illness Narrative History of Present Illness (Text): 12/25/16 12:45 A 76 year old male, whose past medical history includes CVA (mild residual visual deficits), CABG (2005), DM, and HTN and LE staph infection (2012), presents to the emergency department complaining of "on and off" dizziness for 4 days. Patient reports he received flu shot same day dizziness began. Patient explains symptom "fades in and out" and lasts for a few moments, does not experience a "room-spinning sensation". Patient notes also experiencing shortness of breath when walking up stairs x 2 weeks and began experiencing pain along right arm during 2-3 days ago, but denies of any headache, chest pain , or any other complaints. Of note, the patient says that someone he was talking to on the phone this morning told him that he sounds incoherent, though the patient denies experiencing any speech changes himself. PMD: Dr. Haley Time/Duration: < week (4 days) Symptom Onset: Sudden Symptom Course: Unchanged Past Medical History - Provider Review Nursing Documentation Reviewed: Yes - Infectious Disease Hx of Infectious Diseases: None - Tetanus Immunization Tetanus Immunization: Up to Date - Cardiac Hx Cardiac Disorders: Yes Hx Congestive Heart Failure: Yes Hx Hypertension: Yes - Pulmonary Hx Respiratory Disorders: No - Neurological Hx Neurological Disorder: Yes Hx Transient Ischemic Attacks (TIA): Yes (x5) - HEENT Hx HEENT Disorder: Yes Hx Cataracts: Yes Hx Glaucoma: Yes - Renal Hx Renal Disorder: Yes Hx Kidney Stones: Yes (lithotripsy) - Endocrine/Metabolic Hx Endocrine Disorders: No - Hematological/Oncological Hx Blood Disorders: No - Integumentary Hx Dermatological Disorder: No - Musculoskeletal/Rheumatological Hx Arthritis: Yes - Gastrointestinal Hx Gastrointestinal Disorders: No - Genitourinary/Gynecological Hx Genitourinary Disorders: Yes - Psychiatric Hx Psychophysiologic Disorder: No Hx Substance Use: No - Surgical History Other/Comment: Macular hole repair, umbilical hernia repair, adnoidectomy - Anesthesia Hx Anesthesia Reactions: No Hx Malignant Hyperthermia: No - Suicidal Assessment Feels Threatened In Home Enviroment: No Family/Social History - Physician Review Nursing Documentation Reviewed: Yes Family/Social History: No Known Family HX Smoking Status: Never Smoked Hx Alcohol Use: No Hx Substance Use: No Hx Substance Use Treatment: No Allergies/Home Meds Allergies/Adverse Reactions: Allergies milk Adverse Reaction (Verified 06/05/16 08:15) CONGESTION Home Medications: Home Meds Medication Instructions Recorded Confirmed Spironolactone 25 mg PO BID 08/14/12 06/05/16 Potassium Chloride [K-Dur 20] 20 meq PO DAILY 09/06/13 06/05/16 Furosemide 40 mg PO BID 01/20/14 06/05/16 Cephalexin [Keflex] 500 mg PO TID 06/05/16 06/05/16 Review of Systems - Physician Review All systems were reviewed & negative as marked: Yes - Review of Systems ENT: absent: Voice Changes Respiratory: SOB (when going up stairs) Cardiovascular: MAO. absent: Chest Pain Neurological: Dizziness. absent: Headache Physical Exam Vital Signs Reviewed: Yes Vital Signs Temp Pulse Resp BP Pulse Ox 12/25/16 11:56 98.6 F 88 20 175/80 H 93 L Temperature: Afebrile Blood Pressure: Hypertensive Pulse: Regular Respiratory Rate: Normal Appearance: Positive for: Well-Appearing Pain Distress: None Mental Status: Positive for: Alert and Oriented X 3 - Systems Exam Head: Present: Atraumatic, Normocephalic Pupils: Present: PERRL Extroacular Muscles: Present: EOMI Conjunctiva: Present: Normal Mouth: Present: Moist Mucous Membranes Pharnyx: Present: Normal. No: ERYTHEMA, EXUDATE Neck: Present: Normal Range of Motion. No: JVD Respiratory/Chest: Present: Other (Fine crackles b/L at the bases) Cardiovascular: Present: Regular Rate and Rhythm, Normal S1, S2. No: Murmurs Abdomen: Present: Normal Bowel Sounds. No: Tenderness, Distention, Peritoneal Signs Back: Present: Normal Inspection Upper Extremity: Present: Normal Inspection. No: Cyanosis, Edema Lower Extremity: Present: Edema (+1), Other (venous stasis changes) Neurological: Present: GCS=15, CN II-XII Intact, Speech Normal Skin: Present: Warm, Dry, Normal Color. No: Rashes Psychiatric: Present: Alert, Oriented x 3, Normal Insight, Normal Concentration Medical Decision Making ED Course and Treatment: 12/25/16 12:50 Impression: 76 year old male with dizziness. Normal neuro exam. Physical exam shows lower extremity +1 edema and venous stasis changes; mild crackels b/L in lungs. Plan: -- EKG -- Head CT -- Chest X-ray -- Lower Extremity Ultrasound -- Labs -- Reassess and disposition Prior Visits: Notes and results from previous visits were reviewed. Patient was last seen in the emergency department on 06/05/2016 for evaluation of slurred speech and left -sided facial droop. Patient was admitted under telemetry observation. Progress Notes: 12/25/2016 13:13 Chest X-ray IMPRESSION: Right-sided infiltrate. Sever cardiomegaly. Dictator: Venancio Red MD 12/25/2016 13:[address] IMPRESSION: No intracranial mass, hemorrhage or evidence of acute infarct. Age appropriate involutional change. Dictator: Jack Askew MD 12/25/16 13:47 Patient with noted history. Recent CVA 6-7 months ago and today told on the phone he sounded incoherent but did not feel speech change himself. Dizziness on/off is nonspecific. CXR shows R side infiltrate with hypoxia about 91-92% on room air; BNP is normal and CE negative. LE dopplers negative for DVT with negative d-dimer. Brain CT with no acute changes. Will admit and treat for pneumonia and consider possible TIA, given the dizziness. Case discussed with Dr. Haley for admission to his service. - Lab Interpretations Lab Results: 12/25/16 12:15 12/25/16 12:15 Lab Results 12/25/16 12:15: D-Dimer, Quantitative < 200 12/25/16 12:15: Magnesium 1.9, NT-Pro-B Natriuret Pep 77.4, Lipase 43 12/25/16 12:15: Sodium 139, Potassium 4.0, Chloride 104, Carbon Dioxide 27, Anion Gap 12, BUN 21, Creatinine 0.9, Est GFR ( Amer) > 60, Est GFR (Non- Af Amer) > 60, Random Glucose 118 H, Calcium 9.8, Total Bilirubin 0.9, AST 26, ALT 37, Alkaline Phosphatase 53, Lactate Dehydrogenase 421, Total Creatine Kinase 77, Troponin I < 0.01, Total Protein 7.2, Albumin 4.2, Globulin 3.0, Albumin/Globulin Ratio 1.4 12/25/16 12:15: PT 12.0, INR 1.09 H, APTT 31.0 12/25/16 12:15: WBC 8.2, RBC 4.62, Hgb 15.0, Hct 43.0, MCV 93.1, MCH 32.5, MCHC 34.9, RDW 13.4, Plt Count 185, MPV 9.5, Gran % 62.6, Lymph % (Auto) 25.5, [place] % (Auto) 9.1 H, Eos % (Auto) 2.4, Baso % (Auto) 0.4, Gran # 5.14, Lymph # 2.1, [place] # 0.8 H, Eos # 0.2, Baso # 0.03 I have reviewed the lab results: Yes - RAD Interpretation Radiology Orders: 12/25/16 12:17 CHEST PORTABLE [RAD] Stat 12/25/16 12:51 Brain [HEAD W/O CONTRAST] [CT] Stat 12/25/16 13:05 DUPLEX LOWER EXTRM VEIN BILAT [US] Stat - EKG Interpretation EKG Interpretation (Text): 12/25/16 13:52 NSR @ 92 with 1st degree AV block with RBBB; QRS is 136; other intervals are normal; no new ST/T changes c/w 06/05/16. Interpreted by ED Physician: Yes Type: 12 lead EKG Comparison: Similar to previous EKG - Medication Orders Current Medication Orders: Ceftriaxone Sodium (Rocephin 1 Gram Ivpb) 1 gm in 100 mls @ 200 mls/hr IV ONCE STA PRN Reason: Protocol Stop: 12/25/16 14:01 Azithromycin 500 mg/ (Azithromycin) 250 mls @ 167 mls/hr IVPB STAT STA PRN Reason: Protocol Stop: 12/25/16 15:02 - Scribe Statement The provider has reviewed the documentation as recorded by the Lester Aragon Provider Scribe Attestation: All medical record entries made by the Scribe were at my direction and personally dictated by me. I have reviewed the chart and agree that the record accurately reflects my personal performance of the history, physical exam, medical decision making, and the department course for this patient. I have also personally directed, reviewed, and agree with the discharge instructions and disposition. Disposition/Present on Arrival - Present on Arrival Any Indicators Present on Arrival: No History of DVT/PE: No History of Uncontrolled Diabetes: No Urinary Catheter: No History of Decub. Ulcer: No History Surgical Site Infection Following: None - Disposition Have Diagnosis and Disposition been Completed?: Yes Diagnosis: Dizziness, Pneumonia Disposition: HOSPITALIZED Disposition Time: 13:35 Patient Plan: Admission Condition: FAIR Forms: [employer] ([place])
--- NOTE | 2016-12-25 13:15 | RAD ---
HISTORY: dizziness COMPARISON: 06/05/2016 FINDINGS: LUNGS: There is a right-sided infiltrate. The left lung is clear PLEURA: No significant pleural effusion identified, no pneumothorax apparent. CARDIOVASCULAR: Severe cardiomegaly OSSEOUS STRUCTURES: No significant abnormalities. VISUALIZED UPPER ABDOMEN: Normal. OTHER FINDINGS: None. IMPRESSION: Right-sided infiltrate. Severe cardiomegaly.
[2016-12-25 13:16] LABS: MAGNESIUM 1.9 mg/dL (1.7-2.2)
[2016-12-25 13:23] LABS: TROPONIN I < 0.01 ng/mL
--- NOTE | 2016-12-25 13:29 | CT ---
PROCEDURE: CT HEAD WITHOUT CONTRAST. HISTORY: dizziness, h/o cva COMPARISON: 06/05/2016 TECHNIQUE: Axial computed tomography images were obtained through the head/brain without intravenous contrast. Radiation dose: Total exam DLP = 770.10 mGy-cm. This CT exam was performed using one or more of the following dose reduction techniques: Automated exposure control, adjustment of the mA and/or kV according to patient size, and/or use of iterative reconstruction technique. FINDINGS: HEMORRHAGE: No intracranial hemorrhage. BRAIN: No mass effect or edema. Mild to moderate diffuse age-appropriate cerebral atrophy. No evidence of acute infarct. Small old bilateral barry radiata/centrum semiovale lacunar infarcts. Mild periventricular white matter lucency consistent with chronic microvascular ischemic change. VENTRICLES: Unremarkable. No hydrocephalus. CALVARIUM: Unremarkable. PARANASAL SINUSES: Unremarkable as visualized. No significant inflammatory changes. MASTOID AIR CELLS: Unremarkable as visualized. No inflammatory changes. OTHER FINDINGS: None. IMPRESSION: No intracranial mass, hemorrhage or evidence of acute infarct. Age-appropriate involutional change.
[2016-12-25] MEDS ORDERED: cefTRIAXone 1 gm 1 GM/100 ML BAG IV STA (13:32)
[2016-12-25] MEDS ORDERED: Azithromycin 500 MG in Azithromycin 500MG/NS 250ml 250 ML IVPB STA (13:33)
[2016-12-25] MEDS ORDERED: Iohexol 350 MG/100 ML VIAL ONE (16:12)
--- NOTE | 2016-12-25 17:09 | CT ---
PROCEDURE: CT Chest with and without contrast HISTORY: right sided infiltrate COMPARISON: 12/01/2014 and earlier chest x-ray same day TECHNIQUE: Contiguous axial images were obtained through the chest with intravenous contrast enhancement. Sagittal and coronal reconstructions were performed. IV contrast: 100 cc of Omni 350 Radiation dose (DLP): 1572 mGy-cm. This CT exam was performed using one or more of the following dose reduction techniques: Automated exposure control, adjustment of the mA and/or kV according to patient size, and/or use of iterative reconstruction technique. FINDINGS: LUNGS: There is no evidence of an alveolar infiltrate. The appearance of an infiltrate on the previous chest x-ray can be attributed to the large pericardial fat pad extending into the right side of the chest. MEDIASTINUM: Unremarkable thoracic aorta. No aneurysm or dissection. There is excessive mediastinal fat and pericardial fat which gives the appearance of severe cardiomegaly and pulmonary infiltrates on plain films. . Main pulmonary artery unremarkable. No vascular congestion. No lymphadenopathy. PLEURA: No pleural fluid. No pneumothorax. BONES: No fracture. No destructive lesion. UPPER ABDOMEN: Grossly unremarkable. OTHER FINDINGS: None. IMPRESSION: There is excessive mediastinal fat and pericardial fat which gives the appearance of severe cardiomegaly and pulmonary infiltrates on plain films. . Minimal interstitial changes are seen in the periphery of both lungs but there is no alveolar infiltrate
--- NOTE | 2016-12-25 17:18 | US ---
HISTORY: Leg pain and swelling. Evaluate for DVT PHYSICIAN(S): Jack Bond MD. TECHNIQUE: Duplex sonography and color-flow Doppler with graded compression were used to evaluate the deep venous systems of both lower extremities. FINDINGS: The visualized deep venous systems of both lower extremities are sonographically normal and compressible. Normal wave forms and augmentation are seen. There is no sonographic evidence for deep venous thrombosis in the visualized segments of both lower extremities. IMPRESSION: No sonographic evidence for deep venous thrombosis in the visualized segments of both lower extremities.
--- NOTE | 2016-12-25 22:09 | CARD ---
APPROVED REPORT EKG Measurement Heart [id number] <Conclusion> Sinus rhythm with 1st degree AV block with fusion complexes Right bundle branch block Cannot rule out Inferior infarct, age undetermined Abnormal ECG
--- NOTE | 2016-12-26 04:35 | CP.PCM.HP ---
History of Present Illness - History of Present Illness History of Present Illness: Patient is a 76 year old male with a past medical history of TIA, Alzheimer's, CAD s/p sextuple bypass surgery, hypertension, and hyperlipidemia who presents to [facility] ED on 12/25/16 with complaints of dizziness which started on Saturday. Patient states that he experienced the dizziness when getting out of bed and walking. Says the sensation started with his vision darkening. Denies room spinning around him. States that dizziness is not exacerbated when he moves his head from one side to another when laying down. Patient admitted to being told that he sounded incoherent at one point on the phone. However patient states he does not believe he has had any deficits in speech in the past few days. Patient admits to shortness of breath which has been exacerbated lately with exertion; for example walking up a flight of stairs. Patient denies chest pain, headache, current shortness of breath, dizziness, weakness, cough. PMD: Dr. Haley Past Surgical history: Sextuple Bypass Family History: extensive history for CVA on paternal and maternal side Social History: denies tobacco use, alcohol consumption, and illicit drug use Allergies: Lactose Present on Admission - Present on Admission Any Indicators Present on Admission: Yes Review of Systems - Constitutional Constitutional: absent: Chills, Fever, Headache - EENT Eyes: absent: Blurred Vision, Change in Vision Ears: absent: Ear Pain, Dizziness Nose/Mouth/Throat: absent: Nasal Congestion, Nasal Discharge - Cardiovascular Cardiovascular: Dyspnea. absent: Chest Pain, Diaphoresis - Respiratory Respiratory: Dyspnea, Dyspnea on Exertion. absent: Cough, Wheezing - Gastrointestinal Gastrointestinal: absent: Abdominal Pain, Dysphagia - Musculoskeletal Musculoskeletal: absent: Arthralgias, Back Pain - Neurological Neurological: Dizziness. absent: Abnormal Hearing, Abnormal Movements - Psychiatric Psychiatric: absent: Abnormal Sleep Pattern, Anxiety - Endocrine Endocrine: absent: Change in Body Appearance, Change in Libido Past Patient History - Infectious Disease Hx of Infectious Diseases: None - Tetanus Immunizations Tetanus Immunization: Up to Date - Past Social History Smoking Status: Never Smoked - CARDIAC Hx Cardiac Disorders: Yes Hx Congestive Heart Failure: Yes Hx Hypercholesterolemia: Yes Hx Hypertension: Yes - PULMONARY Hx Respiratory Disorders: Yes Hx Bronchitis: Yes Hx Pneumonia: Yes - NEUROLOGICAL Hx Neurological Disorder: Yes HX Cerebrovascular Accident: Yes Hx Transient Ischemic Attacks (TIA): Yes - HEENT Hx HEENT Problems: Yes Hx Cataracts: Yes Hx Glaucoma: Yes - RENAL Hx Chronic Kidney Disease: Yes Hx Kidney Stones: Yes - ENDOCRINE/METABOLIC Hx Endocrine Disorders: Yes Hx Diabetes Mellitus Type 2: Yes (boarderline, not on medications) - HEMATOLOGICAL/ONCOLOGICAL Hx Blood Disorders: Yes Hx Anemia: Yes - INTEGUMENTARY Hx Dermatological Problems: Yes (cellulitis) - MUSCULOSKELETAL/RHEUMATOLOGICAL Hx Falls: Yes - GASTROINTESTINAL Hx Gastrointestinal Disorders: Yes Hx Diverticulitis: Yes Hx Gastroesophageal Reflux: Yes - GENITOURINARY/GYNECOLOGICAL Hx Genitourinary Disorders: Yes Hx Prostate Problems: Yes - PSYCHIATRIC Hx Psychophysiologic Disorder: No Hx Substance Use: No - SURGICAL HISTORY Hx Surgeries: Yes (cabg, lithotripsy, tonsillectomy) Hx Cardiac Catheterization: Yes (CABG x6) - ANESTHESIA Hx Anesthesia Reactions: No Hx Malignant Hyperthermia: No Meds Allergies/Adverse Reactions: Allergies Allergy/AdvReac Type Severity Reaction Status Date / Time milk AdvReac CONGESTION Verified 06/05/16 08:15 Physical Exam - Constitutional Appears: Non-toxic, No Acute Distress - Head Exam Head Exam: ATRAUMATIC, NORMAL INSPECTION, NORMOCEPHALIC - Eye Exam Eye Exam: EOMI, Normal appearance - Neck Exam Neck exam: Positive for: Normal Inspection - Respiratory Exam Respiratory Exam: Wheezes, NORMAL BREATHING PATTERN. absent: Rhonchi, Stridor - Cardiovascular Exam Cardiovascular Exam: REGULAR RHYTHM, +S1, +S2 - GI/Abdominal Exam GI & Abdominal Exam: Distended, Firm, Hyperactive Bowel Sounds. absent: Tenderness - Extremities Exam Extremities exam: Positive for: normal inspection - Back Exam Back exam: NORMAL INSPECTION - Neurological Exam Neurological exam: Alert, CN II-XII Intact, Oriented x3 - Psychiatric Exam Psychiatric exam: Normal Affect, Normal Mood - Skin Skin Exam: Normal Color, Warm Results - Vital Signs Recent Vital Signs: Last Vital Signs Temp 97.5 F L 12/25/16 21:02 Pulse 55 L 12/26/16 02:00 Resp 18 12/25/16 21:02 BP 135/90 12/25/16 21:02 Pulse Ox 93 L 12/25/16 16:15 - Labs Result Diagrams: 12/26/16 06:00 12/26/16 06:00 Assessment & Plan - Assessment and Plan (Free Text) Assessment: 76 year old male with a past medical history of TIA, Alzheimer's, CAD s/p sextuple bypass surgery, hypertension, and hyperlipidemia Plan: 1. Dizziness due to Dehydration vs. Anemia vs. Orthostatics vs. TIA - CT head; no acute findings - MRI ordered - Orthostatic vital signs - Neurology Consulted - Carotid Dopplers - Lipid panel - Restarted home meds: plavix, lipitor, ecotrin, losartan 2. Right lung infiltrate - CT chest reveals right lung infiltrate - Pulmonology consulted - Ceftriaxone; continuation pending Procal and CRP - Azithromycin; continuation pending Procal and CRP 3. Shortness of breath with exertion - Cardiology consulted - BNP ordered - Cardiac enzymes - Echo ordered 4. Hypertension - Losartan - Spironolactone - Heart healthy diet 5. BPH - Tamsulosin DVT/GI prophylaxis SCDs/Protonix
[2016-12-26 06:23] LABS: BASO # 0.02 K/mm3 (0.0-2.0); BASO % 0.2 % (0.0-3.0); EOS # 0.3 (0.0-0.7); EOS % 3.7 % (1.5-5.0); GRAN # 6.43 (1.4-6.5); GRAN % 69.6 % (50.0-68.0); LYMPH # 1.8 (1.2-3.4); MEAN CELL VOLUME 92.6 fl (80.0-105.0); MEAN CORPUSCULAR HGB CONC 34.5 g/dl (31.0-37.0); MEAN PLATELET VOLUME 9.8 fl (7.0-11.0); MONO # 0.7 (0.1-0.6); MONO % 7.5 % (1.0-6.0); RED CELL DISTRIBUTION WIDTH 13.5 % (11.5-14.5); WHITE BLOOD COUNT 9.2 10^3/ul (4.5-11.0)
[2016-12-26 06:38] LABS: ALB/GLOB RATIO 1.3 (1.1-1.8); ALKALINE PHOSPHATASE 53 U/L (38-126); ALT/SGPT 31 U/L (7-56); AST/SGOT 25 U/L (17-59); BILIRUBIN,TOTAL 1.2 mg/dL (0.2-1.3); BLOOD UREA NITROGEN 18 mg/dL (7-21); CALCIUM 9.5 mg/dL (8.4-10.5); CARBON DIOXIDE 27 mmol/L (21-33); CHLORIDE 104 mmol/L (98-107); CHOLESTEROL 130 mg/dL (130-200); GFR AFRICAN-AMERICAN > 60; GLUCOSE,RANDOM 132 mg/dL (70-110); POTASSIUM 4.3 mmol/L (3.6-5.0); SODIUM 140 mmol/L (132-148); TOTAL PROTEIN 7.2 g/dL (5.8-8.3)
--- NOTE | 2016-12-26 07:57 | CP.PCM.CON ---
<Omid Gibson - Last Filed: 12/26/16 10:10> History of Present Illness - History of Present Illness History of Present Illness: Neurology consult note for Dr. Mendosa's service - Dee Gibson PGY2 HPI: Patient is a 76 year-old male with past medical history of TIA, Alzheimer' s dementia, coronary artery disease s/p sextuple bypass graft surgery, hypertension and hyperlipidemia who presented to [facility] complaining of dizziness that had started 2 days prior to presentation. Patient reported that he had been experiencing dizziness on ambulation associated with changes in vision (darkening of his visual field). He described the dizziness as lightheadedness and denied feeling as though the room was spinning. Patient reported that he was told he sounded incoherent on the phone however he denied noticing any deficits in his speech previously. Denied focal weakness, numbness , tingling, chest pain, palpitations, fever, chills, cough, abdominal pain, nausea, vomiting. Neurology consulted for evaluation of dizziness. 12point ROS as per HPI above, otherwise negative PMH: as stated above PSH: sextuple coronary artery graft surgery Allergies: Lactose Social Hx: denies tobacco, alcohol and illicit drug use Family Hx: Mother/Father: Notable for history of CVA PMD: Dr. Haley Past Patient History - Infectious Disease Hx of Infectious Diseases: None - Tetanus Immunizations Tetanus Immunization: Up to Date - Past Social History Smoking Status: Never Smoked - CARDIAC Hx Cardiac Disorders: Yes Hx Congestive Heart Failure: Yes Hx Hypercholesterolemia: Yes Hx Hypertension: Yes - PULMONARY Hx Respiratory Disorders: Yes Hx Bronchitis: Yes Hx Pneumonia: Yes - NEUROLOGICAL Hx Neurological Disorder: Yes HX Cerebrovascular Accident: Yes Hx Transient Ischemic Attacks (TIA): Yes - HEENT Hx HEENT Problems: Yes Hx Cataracts: Yes Hx Glaucoma: Yes - RENAL Hx Chronic Kidney Disease: Yes Hx Kidney Stones: Yes - ENDOCRINE/METABOLIC Hx Endocrine Disorders: Yes Hx Diabetes Mellitus Type 2: Yes (boarderline, not on medications) - HEMATOLOGICAL/ONCOLOGICAL Hx Blood Disorders: Yes Hx Anemia: Yes - INTEGUMENTARY Hx Dermatological Problems: Yes (cellulitis) - MUSCULOSKELETAL/RHEUMATOLOGICAL Hx Falls: Yes - GASTROINTESTINAL Hx Gastrointestinal Disorders: Yes Hx Diverticulitis: Yes Hx Gastroesophageal Reflux: Yes - GENITOURINARY/GYNECOLOGICAL Hx Genitourinary Disorders: Yes Hx Prostate Problems: Yes - PSYCHIATRIC Hx Psychophysiologic Disorder: No Hx Substance Use: No - SURGICAL HISTORY Hx Surgeries: Yes (cabg, lithotripsy, tonsillectomy) Hx Cardiac Catheterization: Yes (CABG x6) - ANESTHESIA Hx Anesthesia Reactions: No Hx Malignant Hyperthermia: No Meds Allergies/Adverse Reactions: Allergies Allergy/AdvReac Type Severity Reaction Status Date / Time milk AdvReac CONGESTION Verified 06/05/16 08:15 - Medications Medications: Current Medications Aspirin (Ecotrin) 81 mg PO DAILY [facility] Atorvastatin Calcium (Lipitor) 40 mg PO DAILY [facility] Cholecalciferol (Vitamin D) 5,000 iu PO DAILY [facility] Clopidogrel Bisulfate (Plavix) 75 mg PO DAILY [facility] Donepezil HCl (Aricept) 10 mg PO DAILY [facility] Finasteride (Proscar) 5 mg PO DAILY [facility] Losartan Potassium (Cozaar) 100 mg PO DAILY [facility] Pantoprazole Sodium (Protonix Inj) 40 mg IVP DAILY [facility] Last Admin: 12/25/16 15:55 Dose: 40 mg Potassium Chloride (K-Dur 20 Meq Er Tab) 20 meq PO DAILY [facility] Spironolactone (Aldactone) 25 mg PO BID [facility] Tamsulosin HCl (Flomax) 0.4 mg PO BID [facility] Physical Exam - Constitutional Appears: Non-toxic, No Acute Distress - Head Exam Head Exam: ATRAUMATIC, NORMAL INSPECTION, NORMOCEPHALIC - Eye Exam Eye Exam: EOMI, PERRL - ENT Exam ENT Exam: Mucous Membranes Moist - Neck Exam Neck exam: Positive for: Normal Inspection. Negative for: Lymphadenopathy, Tenderness, Thyromegaly - Respiratory Exam Respiratory Exam: Decreased Breath Sounds. absent: Rales, Rhonchi, Wheezes - Cardiovascular Exam Cardiovascular Exam: RRR, +S1, +S2. absent: Clicks, Gallop, JVD, Rubs - GI/Abdominal Exam GI & Abdominal Exam: Normal Bowel Sounds, Soft. absent: Distended, Firm, Guarding, Rebound, Rigid, Tenderness - Neurological Exam Neurological exam: Alert, CN II-XII Intact, Oriented x3 Additional comments: awake, alert, answering questions appropriately, oriented x3 EOMI PERRL CN2-12 grossly intact moves all extremities spontaneously sensory intact throughout no drift proprioception intact gait deferred - Psychiatric Exam Psychiatric exam: Normal Affect, Normal Mood - Skin Skin Exam: Dry, Intact, Normal Color, Warm Results - Vital Signs Recent Vital Signs: Last Vital Signs Temp 97.5 F L 12/25/16 21:02 Pulse 48 L 12/26/16 06:00 Resp 18 12/25/16 21:02 BP 135/90 12/25/16 21:02 Pulse Ox 93 L 12/25/16 16:15 - Labs Result Diagrams: 12/26/16 06:00 12/26/16 06:00 Labs: Laboratory Results - last 24 hr 12/26/16 12/26/16 06:00 06:00 WBC 9.2 RBC 4.75 Hgb 15.2 Hct 44.0 MCV 92.6 MCH 32.0 MCHC 34.5 RDW 13.5 Plt Count 186 MPV 9.8 Gran % 69.6 H Lymph % (Auto) 19.0 L Kingman % (Auto) 7.5 H Eos % (Auto) 3.7 Baso % (Auto) 0.2 Gran # 6.43 Lymph # 1.8 Kingman # 0.7 H Eos # 0.3 Baso # 0.02 Sodium 140 Potassium 4.3 Chloride 104 Carbon Dioxide 27 Anion Gap 13 BUN 18 Creatinine 0.8 Est GFR ( Amer) > 60 Est GFR (Non-Af Amer) > 60 Random Glucose 132 H Calcium 9.5 Total Bilirubin 1.2 AST 25 ALT 31 Alkaline Phosphatase 53 Total Protein 7.2 Albumin 4.1 Globulin 3.1 Albumin/Globulin Ratio 1.3 Triglycerides 112 Cholesterol 130 LDL Cholesterol Direct 67 HDL Cholesterol 42 Assessment & Plan - Assessment and Plan (Free Text) Plan: 76yo male with history of TIA, Alzheimer's dementia, coronary artery disease s/ p sextuple bypass graft surgery, hypertension and hyperlipidemia [place] [facility] [place] dizziness that started 2 days prior to presentation associated with shortness of breath and changes in vision. Neurology consulted for evaluation. 1. Dizziness r/o TIA/CVA 2. CAD 3. Hypertension 4. Hyperlipidemia 5. Hx of TIA 6. Alzheimer's dementia -Vertebrobasilar insufficiency may cause intermittent and recurrent dizziness. MRA ordered to rule out vertebrobasilar insufficiency. -Recommend outpatient EMG to rule out neuropathy given that the patient is chronically off balance on standing -Intermittent episodes of bradycardia may also contribute to symptoms of dizziness; recommend holter monitor and echocardiogram -MRI brain, carotid doppler and echocardiogram have already been ordered and are pending, we will review these results when available. -Physical therapy/occupational therapy evaluation -Reviewed orthostatic VS, which were negative -Maintain systolic BP between 120-130's -Follow up cardiology recommendations -Lower extremity doppler reviewed; no evidence of DVT in bilateral lower extremities -EKG reviewed; revealed sinus rhythm with 1st degree AV block with fusion complexes; RBBB; inferior infarct (age undetermined) -CT Chest reviewed; excessive mediastinal and pericardial fat, minimal interstitial infiltrate seen in the periphery of both lungs however no alveolar infiltrate -CT Head reviewed; revealed no acute intracranial mass, hemorrhage or evidence of acute infarct Patient seen and case discussed/reviewed with attending, Dr. Mendosa - Date & Time Date: 12/26/16 Time: 07:57 <Dallas Mendosa - Last Filed: 12/26/16 10:46> Meds - Medications Medications: Current Medications Aspirin (Ecotrin) 81 mg PO DAILY [facility] Last Admin: 12/26/16 09:45 Dose: 81 mg Atorvastatin Calcium (Lipitor) 40 mg PO DAILY [facility] Last Admin: 12/26/16 09:44 Dose: 40 mg Cholecalciferol (Vitamin D) 5,000 iu PO DAILY [facility] Last Admin: 12/26/16 09:44 Dose: 5,000 iu Clopidogrel Bisulfate (Plavix) 75 mg PO DAILY [facility] Last Admin: 12/26/16 09:44 Dose: 75 mg Donepezil HCl (Aricept) 10 mg PO DAILY [facility] Last Admin: 12/26/16 09:43 Dose: 10 mg Finasteride (Proscar) 5 mg PO DAILY [facility] Last Admin: 12/26/16 09:45 Dose: 5 mg Losartan Potassium (Cozaar) 100 mg PO DAILY [facility] Last Admin: 12/26/16 09:45 Dose: 100 mg Pantoprazole Sodium (Protonix Inj) 40 mg IVP DAILY [facility] Last Admin: 12/26/16 09:45 Dose: 40 mg Potassium Chloride (K-Dur 20 Meq Er Tab) 20 meq PO DAILY [facility] Last Admin: 12/26/16 09:43 Dose: 20 meq Spironolactone (Aldactone) 25 mg PO BID [facility] Last Admin: 12/26/16 09:45 Dose: 25 mg Tamsulosin HCl (Flomax) 0.4 mg PO BID [facility] Last Admin: 12/26/16 09:45 Dose: 0.4 mg Results - Vital Signs Recent Vital Signs: Last Vital Signs Temp 97.8 F 12/26/16 08:03 Pulse 68 12/26/16 08:03 Resp 22 12/26/16 08:03 BP 135/77 12/26/16 08:03 Pulse Ox 97 12/26/16 08:03 - Labs Result Diagrams: 12/26/16 06:00 12/26/16 06:00 Labs: Laboratory Results - last 24 hr 12/26/16 12/26/16 06:00 06:00 WBC 9.2 RBC 4.75 Hgb 15.2 Hct 44.0 MCV 92.6 MCH 32.0 MCHC 34.5 RDW 13.5 Plt Count 186 MPV 9.8 Gran % 69.6 H Lymph % (Auto) 19.0 L Kingman % (Auto) 7.5 H Eos % (Auto) 3.7 Baso % (Auto) 0.2 Gran # 6.43 Lymph # 1.8 Kingman # 0.7 H Eos # 0.3 Baso # 0.02 Sodium 140 Potassium 4.3 Chloride 104 Carbon Dioxide 27 Anion Gap 13 BUN 18 Creatinine 0.8 Est GFR ( Amer) > 60 Est GFR (Non-Af Amer) > 60 Random Glucose 132 H Calcium 9.5 Total Bilirubin 1.2 AST 25 ALT 31 Alkaline Phosphatase 53 Total Protein 7.2 Albumin 4.1 Globulin 3.1 Albumin/Globulin Ratio 1.3 Triglycerides 112 Cholesterol 130 LDL Cholesterol Direct 67 HDL Cholesterol 42 Attending/Attestation - Attestation I have personally seen and examined this patient.: Yes I have fully participated in the care of the patient.: Yes I have reviewed all pertinent clinical information: Yes
[2016-12-26] MEDS: Potassium Chloride 20 mEq ER Tab PO SCH (09:43)
--- NOTE | 2016-12-26 10:14 | CON ---
DATE: 12/26/2016 REASON FOR CONSULTATION: Rule out pneumonia. REFERRING PHYSICIAN: Peng Haley MD HISTORY OF PRESENT ILLNESS: The patient is a 76-year-old male, with past medical history significant for cerebrovascular accident, coronary artery disease, status post open heart surgery, diabetes mellitus, hypertension, who presents to [facility] with a 4-day history of progressive dizziness. In addition, the patient stated (in the emergency room) that a friend had told him that he was speaking incoherently. He was thus admitted for additional evaluation. The patient is not short of breath at rest. He does experience chronic dyspnea on exertion - predominantly when walking up a flight of stairs. The patient also states to a chronic occasional cough with some sputum production--since his CVA.. There is no history of chest pain, coughing up of blood, or chest pain - made worse with deep respirations. There is no history of temperatures, chills or infectious exposure. There is no history of night sweats, weight loss or appetite change prior to the above events. No history of leg or calf pains. No history of syncope or diaphoresis. No history of recent travel or trauma. REVIEW OF SYSTEMS: No history of nausea, vomiting, or diarrhea. No acute urinary symptoms. No new musculoskeletal complaints. Rest of the review of systems negative. ALLERGIES: NO KNOWN ALLERGIES. SOCIAL HISTORY: Negative for tobacco and negative for alcohol. FAMILY HISTORY: No inheritable diseases. HOME MEDICATIONS: Include Flomax, magnesium, Cozaar, Aricept, Proscar, Plavix, Aldactone or Lipitor. PHYSICAL EXAMINATION GENERAL: The patient is not short of breath at rest. He is not using accessory muscles for breathing. VITAL SIGNS: Temperature is 97.5, pulse 48, respirations 18, blood pressure 135/90. Oxygen saturation on room air is 93%. HEENT: Normocephalic, atraumatic. No JVD. CARDIOVASCULAR: Systolic ejection murmur at the lower left sternal border. No S3 gallop. LUNGS: Minimal crackles at both bases. No rhonchi. No wheezing. EXTREMITIES: Mild edema. No cyanosis, no clubbing. Calves are nontender to palpation. GI: Abdomen is soft, nontender and nondistended. Bowel sounds are positive. SKIN: No acute rash. Neurologic: Exam limited at the present time. PERTINENT LABORATORY DATA: CAT scan of the chest was done on 12/25/2016 and reviewed. There are minimal peripheral interstitial infiltrates noted. There is no alveolar infiltrate. There is no lymphadenopathy. CBC: White count 9.2, hemoglobin 15.2, hematocrit 44.0, platelets of 186. Complete metabolic profile: Glucose 132. Rest of the metabolic profile is within normal limits. Procalcitonin was done and is negative - 0.05. IMPRESSION: 1. Severe dizziness - resolving. 2. Rule out pneumonia. 3. Coronary artery disease. 4. Hypertension. 5. History of cerebrovascular accident. PLAN: The patient presents to [facility] with main complaint of increasing dizziness for the past 4 days. In addition, as above, the patient was also told by a friend that he was speaking incoherently. He was thus admitted for additional evaluation. Upon extensive questioning, there are no acute pulmonary symptoms offered. The patient does have chronic dyspnea on exertion - predominately when climbing up stairs. He also has a minimal occasional cough with sputum production - since his stroke. I did review the CAT scan of the chest. There are minimal peripheral interstitial changes noted. These changes may be chronic in nature. The patient has not had a recent CAT scan done. I would continue with the current antibiotic therapy for now. However, given the negative procalcitonin, we can probably shorten the overall course. Neurology evaluation has been called. The patient does state to feeling better with a significant decrease in his dizziness - since his initial presentation. Cardiology evaluation with Dr. Herrera has also been ordered. The patient does have a history of extensive coronary artery disease. The patient is certainly clinically improved - compared to the initial presentation. Additional pulmonary intervention will be based on the clinical status of the patient. I will discuss the above with Dr. Haley later this morning. Thank you very much for this pulmonary consultation. Baldemar Sloan MD MTDOmar
--- NOTE | 2016-12-26 12:32 | US ---
PROCEDURE: Bilateral carotid artery duplex ultrasound HISTORY: Carotid stenosis dizziness PHYSICIAN(S): Jack Bond MD. TECHNIQUE: Duplex sonography and color-flow Doppler were used to evaluate the carotid bifurcations and limited segments of the vertebral arteries bilaterally. The exam is limited by body habitus. FINDINGS: There is mild smooth heterogeneous plaque noted at the carotid bifurcations bilaterally. The peak systolic velocity in the proximal right internal carotid artery is 72 cm/sec. This corresponds to a 20 to 39% proximal right ICA stenosis. Normal systolic velocities are noted in the proximal right external carotid artery. There is antegrade flow in the right vertebral artery. The peak systolic velocity in the proximal left internal carotid artery is 67 cm/sec. This corresponds to a 20 to 39% proximal left ICA stenosis. Normal systolic velocities are noted in the proximal left external carotid artery. There is antegrade flow in the left vertebral artery. IMPRESSION: 1. Bilateral 20-39% proximal ICA stenoses. 2. Antegrade flow in both vertebral arteries.
[2016-12-26 16:13] VITALS: RESP 20
--- NOTE | 2016-12-27 05:27 | CP.PCM.PN ---
Subjective - Date & Time of Evaluation Date of Evaluation: 12/26/16 Time of Evaluation: 06:45 - Subjective Subjective: Patient seen and examined at bedside with no acute complaints overnight. Was seen sitting up watching television. Patient states he wasn't able to sleep well through the night because of the hospital bed. Denies dizziness, shortness of breath, chest pain, headache, nausea, vomiting, diarrhea, abdominal pain. Objective - Vital Signs/Intake and Output Vital Signs (last 24 hours): Temp Pulse Resp BP Pulse Ox 98.6 F 63 20 142/76 96 12/26/16 22:00 12/27/16 02:00 12/26/16 22:00 12/26/16 22:00 12/26/16 22:00 Intake and Output: 12/26/16 12/27/16 18:59 06:59 Intake Total 900 Output Total 600 Balance 300 - Medications Medications: Current Medications Aspirin (Ecotrin) 81 mg PO DAILY [facility] Last Admin: 12/26/16 09:45 Dose: 81 mg Atorvastatin Calcium (Lipitor) 40 mg PO DAILY [facility] Last Admin: 12/26/16 09:44 Dose: 40 mg Cholecalciferol (Vitamin D) 5,000 iu PO DAILY [facility] Last Admin: 12/26/16 09:44 Dose: 5,000 iu Clopidogrel Bisulfate (Plavix) 75 mg PO DAILY [facility] Last Admin: 12/26/16 09:44 Dose: 75 mg Donepezil HCl (Aricept) 10 mg PO DAILY [facility] Last Admin: 12/26/16 09:43 Dose: 10 mg Finasteride (Proscar) 5 mg PO DAILY [facility] Last Admin: 12/26/16 09:45 Dose: 5 mg Losartan Potassium (Cozaar) 100 mg PO DAILY [facility] Last Admin: 12/26/16 09:45 Dose: 100 mg Pantoprazole Sodium (Protonix Inj) 40 mg IVP DAILY [facility] Last Admin: 12/26/16 09:45 Dose: 40 mg Potassium Chloride (K-Dur 20 Meq Er Tab) 20 meq PO DAILY [facility] Last Admin: 12/26/16 09:43 Dose: 20 meq Spironolactone (Aldactone) 25 mg PO BID [facility] Last Admin: 12/26/16 17:59 Dose: 25 mg Tamsulosin HCl (Flomax) 0.4 mg PO BID [facility] Last Admin: 12/26/16 17:59 Dose: 0.4 mg - Labs Labs: 12/26/16 06:00 12/26/16 06:00 PT 12.0 SECONDS (9.4-12.5) 12/25/16 12:15 INR 1.09 (0.93-1.08) H 12/25/16 12:15 APTT 31.0 Seconds (25.1-36.5) 12/25/16 12:15 - Constitutional Appears: Non-toxic, No Acute Distress - Head Exam Head Exam: ATRAUMATIC, NORMAL INSPECTION, NORMOCEPHALIC - Eye Exam Eye Exam: EOMI, Normal appearance - ENT Exam ENT Exam: Mucous Membranes Moist, Normal Exam - Neck Exam Neck Exam: Full ROM, Normal Inspection - Respiratory Exam Respiratory Exam: Clear to Ausculation Bilateral, NORMAL BREATHING PATTERN. absent: Rhonchi, Wheezes - Cardiovascular Exam Cardiovascular Exam: REGULAR RHYTHM, +S1, +S2 - GI/Abdominal Exam GI & Abdominal Exam: Distended, Normal Bowel Sounds. absent: Tenderness - Back Exam Back Exam: NORMAL INSPECTION - Neurological Exam Neurological Exam: Alert, Awake, Oriented x3 - Psychiatric Exam Psychiatric exam: Normal Affect, Normal Mood - Skin Skin Exam: Normal Color, Warm Assessment and Plan - Assessment and Plan (Free Text) Assessment: 76 year old male with a past medical history of TIA, Alzheimer's, CAD s/p sextuple bypass surgery, hypertension, and hyperlipidemia Plan: 1. Dizziness due to Dehydration vs. Anemia vs. Orthostatics vs. TIA - CT head; no acute findings - Neurology on board - MRI and MRA ordered; results pending - Orthostatic vital signs; negative - Carotid Dopplers; 20-39% Bilateral stenosis of ICA - Lipid panel; within normal limits - Restarted home meds: plavix, lipitor, ecotrin, losartan 2. Right lung infiltrate - CT chest reveals right lung infiltrate - Pulmonology consulted - Procal and CRP negative; d/c abx 3. Shortness of breath with exertion - Cardiology on board - BNP ordered; negative - Cardiac enzymes; negative - Echo ordered; results pending 4. Hypertension - BP stable - Continue Losartan and Spironolactone - Heart healthy diet 5. BPH - Tamsulosin DVT/GI prophylaxis SCDs/Protonix
[2016-12-27 06:38] LABS: BASO # 0.02 K/mm3 (0.0-2.0); BASO % 0.3 % (0.0-3.0); EOS # 0.4 (0.0-0.7); EOS % 4.5 % (1.5-5.0); GRAN # 4.65 (1.4-6.5); GRAN % 58.5 % (50.0-68.0); HEMATOCRIT 44.6 % (42.0-52.0); LYMPH # 2.2 (1.2-3.4); MEAN CELL VOLUME 92.7 fl (80.0-105.0); MEAN CORPUSCULAR HEMOGLOBIN 31.8 pg (25.0-35.0); MEAN CORPUSCULAR HGB CONC 34.3 g/dl (31.0-37.0); MEAN PLATELET VOLUME 9.8 fl (7.0-11.0); MONO # 0.8 (0.1-0.6); MONO % 9.7 % (1.0-6.0); RED CELL DISTRIBUTION WIDTH 13.4 % (11.5-14.5)
[2016-12-27 07:12] LABS: ALB/GLOB RATIO 1.3 (1.1-1.8); ALKALINE PHOSPHATASE 53 U/L (38-126); ALT/SGPT 34 U/L (7-56); AST/SGOT 27 U/L (17-59); BILIRUBIN,TOTAL 0.9 mg/dL (0.2-1.3); BLOOD UREA NITROGEN 19 mg/dL (7-21); CALCIUM 9.8 mg/dL (8.4-10.5); CARBON DIOXIDE 23 mmol/L (21-33); CHLORIDE 106 mmol/L (98-107); GFR AFRICAN-AMERICAN > 60; GLUCOSE,RANDOM 125 mg/dL (70-110); MAGNESIUM 1.7 mg/dL (1.7-2.2); POTASSIUM 4.3 mmol/L (3.6-5.0); SODIUM 139 mmol/L (132-148); TOTAL PROTEIN 7.2 g/dL (5.8-8.3)
--- NOTE | 2016-12-27 09:21 | CON ---
DATE: 12/26/2016 HISTORY OF PRESENT ILLNESS: The patient is a 76-year-old male who presents with transient dizziness. His symptoms are now completely resolved. The patient's past medical history is notable for history of coronary bypass surgery. He suffers from hypertension, hypercholesterolemia and is morbidly obese with no follow up for his cardiac risk reduction program. SOCIAL HISTORY: The patient does not smoke. The patient is mostly sedentary. REVIEW OF SYSTEMS: A 14-point review of systems was reviewed. No angina. No shortness of breath. No edema in lower extremities. No syncope. No exertional dyspnea. PHYSICAL EXAMINATION: VITAL SIGNS: Blood pressure is 135/77, heart rate in the 60s and normal sinus rhythm. NECK: Negative JVD. LUNGS: Without rales. HEART: Reveals S1 and S2. EXTREMITIES: Without edema. LABORATORY DATA: Revealed a BUN and creatinine are within normal limits. Troponin is negative. The hemoglobin is 15.2. DIAGNOSTIC DATA: EKG shows normal sinus rhythm with a right bundle-branch block. His echocardiogram done earlier this year revealed good LV function with an EF of 53%. There is no LV outflow obstruction. CT scan of the chest is unremarkable. IMPRESSION 1. Transient dizziness. 2. No cardiac identifiable cause for his dizziness. 3. Stable angina. 4. Coronary artery disease. 5. History of coronary bypass surgery. 6. Hypertension. 7. Hypercholesterolemia. 8. Morbid obesity. PLAN: Given these findings, there is no cardiac arrhythmias noted. We will continue neurologic workup. No further cardiac workup is indicated at this time. Follow up for his cardiac can be done as an outpatient. Jack Herrera MD
--- NOTE | 2016-12-27 09:24 | MRI ---
PROCEDURE: MRI BRAIN WITHOUT CONTRAST HISTORY: dizziness, speech impairment, h/o cva COMPARISON: CT head without contrast from 12/25/2016 and MRI brain without contrast from 06/05/2016 TECHNIQUE: Multiplanar, multisequence MR images of the brain were obtained without intravenous contrast enhancement. FINDINGS: HEMORRHAGE: None DWI: No evidence of an acute or early subacute infarction. BRAIN PARENCHYMA: There are moderate chronic microangiopathic changes. There is no mass, mass effect or abnormal extra-axial fluid collection. The midline sagittal structures are normal. There are old lacunar infarctions in the centrum semiovale, right barry radiata, posterior limb of right internal capsule and right basal ganglia. VENTRICLES: There is moderate age-related global parenchymal volume loss and proportionate enlargement of the ventricles and cortical sulci. CRANIUM: There is normal bone marrow signal pattern. ORBITS: Grossly unremarkable. PARANASAL SINUSES/MASTOIDS: Predominantly clear. VASCULAR SYSTEM: There are normal signal voids in the larger intracranial arteries. OTHER FINDINGS: None. IMPRESSION: No acute intracranial abnormality. Moderate chronic microangiopathic changes and moderate age-related global parenchymal volume loss. Old lacunar infarctions in the centrum semiovale, right barry radiata, posterior limb of internal capsule and basal ganglia.
--- NOTE | 2016-12-27 09:32 | MRI ---
PROCEDURE: Magnetic Resonance Angiography Brain HISTORY: CVA COMPARISON: None available. TECHNIQUE: 3D time of flight MR angiography of the intracranial arteries was performed. Rotating maximum intensity projection images were generated. FINDINGS: INTERNAL CAROTID ARTERIES: Patent and normal in caliber. The skull base, petrous, cavernous and supraclinoid segments are bilaterally widely patient. ANTERIOR CEREBRAL ARTERIES: Patent and normal in caliber. A1 and A2 segments are widely patent. Smaller distal branches unremarkable, as visualized. MIDDLE CEREBRAL ARTERIES: Patent and normal in caliber. M1 and M2 segments are widely patent. Perisylvian branches grossly symmetric. POSTERIOR CIRCULATION: Basilar Artery: Patent and normal in caliber. Distal Vertebral Arteries: Patent and normal in caliber. The left vertebral artery is dominant intracranial E, an anatomic variant. Posterior Cerebral Arteries: Patent and normal in caliber. Posterior Inferior Cerebellar Arteries: Patent and normal in caliber. ANEURYSM/ VASCULAR MALFORMATIONS: None. OTHER FINDINGS: None. IMPRESSION: No evidence of occlusion, definite significant stenosis or saccular aneurysm.
[2016-12-27] MEDS: Potassium Chloride 20 mEq ER Tab PO SCH (10:16)
--- NOTE | 2016-12-27 12:27 | CP.PCM.PN ---
<Omid Gibson - Last Filed: 12/27/16 15:40> Subjective - Date & Time of Evaluation Date of Evaluation: 12/27/16 Time of Evaluation: 12:24 - Subjective Subjective: Neurology progress note for Dr. Mendosa's service - Dee Gibson PGY2 Patient seen and examined at bedside. No acute overnight events or new complaints reported. Denies chest pain, palpitations, SOB. Objective - Vital Signs/Intake and Output Vital Signs (last 24 hours): Temp Pulse Resp BP Pulse Ox 98.1 F 77 20 135/86 98 12/27/16 07:00 12/27/16 07:00 12/27/16 07:00 12/27/16 07:00 12/27/16 04:00 Intake and Output: 12/27/16 12/27/16 06:59 18:59 Intake Total 1020 Output Total 600 Balance 420 - Medications Medications: Current Medications Aspirin (Ecotrin) 81 mg PO DAILY [facility] Last Admin: 12/27/16 10:17 Dose: 81 mg Atorvastatin Calcium (Lipitor) 40 mg PO DAILY [facility] Last Admin: 12/27/16 10:16 Dose: 40 mg Cholecalciferol (Vitamin D) 5,000 iu PO DAILY [facility] Last Admin: 12/27/16 10:16 Dose: 5,000 iu Clopidogrel Bisulfate (Plavix) 75 mg PO DAILY [facility] Last Admin: 12/27/16 10:16 Dose: 75 mg Donepezil HCl (Aricept) 10 mg PO DAILY [facility] Last Admin: 12/27/16 10:16 Dose: 10 mg Finasteride (Proscar) 5 mg PO DAILY [facility] Last Admin: 12/27/16 10:17 Dose: 5 mg Losartan Potassium (Cozaar) 100 mg PO DAILY [facility] Last Admin: 12/27/16 10:16 Dose: 100 mg Pantoprazole Sodium (Protonix Inj) 40 mg IVP DAILY [facility] Last Admin: 12/27/16 10:17 Dose: 40 mg Spironolactone (Aldactone) 25 mg PO BID [facility] Last Admin: 12/27/16 10:16 Dose: 25 mg Tamsulosin HCl (Flomax) 0.4 mg PO BID [facility] Last Admin: 12/27/16 10:16 Dose: 0.4 mg - Labs Labs: 12/27/16 05:30 12/27/16 05:30 PT 12.0 SECONDS (9.4-12.5) 12/25/16 12:15 INR 1.09 (0.93-1.08) H 12/25/16 12:15 APTT 31.0 Seconds (25.1-36.5) 12/25/16 12:15 - Constitutional Appears: No Acute Distress - Head Exam Head Exam: ATRAUMATIC, NORMAL INSPECTION, NORMOCEPHALIC - Eye Exam Eye Exam: EOMI, PERRL - ENT Exam ENT Exam: Mucous Membranes Moist - Neck Exam Neck Exam: Normal Inspection - Respiratory Exam Respiratory Exam: Clear to Ausculation Bilateral. absent: Rales, Rhonchi, Wheezes - Cardiovascular Exam Cardiovascular Exam: RRR, +S1, +S2. absent: Gallop, Rubs, Murmur - GI/Abdominal Exam GI & Abdominal Exam: Soft. absent: Distended, Firm, Guarding, Rigid, Tenderness , Rebound - Neurological Exam Neurological Exam: Alert, Awake, CN II-XII Intact, Oriented x3 Assessment and Plan - Assessment and Plan (Free Text) Plan: 76yo male with history of TIA, Alzheimer's dementia, coronary artery disease s/ p sextuple bypass graft surgery, hypertension and hyperlipidemia presents to [facility] c/o dizziness that started 2 days prior to presentation associated with shortness of breath and changes in vision. Neurology consulted for evaluation. 1. Dizziness r/o TIA/CVA 2. CAD 3. Hypertension 4. Hyperlipidemia 5. Hx of TIA 6. Alzheimer's dementia -No further inpatient neurologic workup necessary at this time. Likely transient dizziness. Recommend outpatient follow up with neurology. -Recommend outpatient EMG to rule out neuropathy given that the patient is chronically off balance on standing -Intermittent episodes of bradycardia may also contribute to symptoms of dizziness; recommend holter monitor and echocardiogram -MRI Brain, MRA brain and carotid doppler reviewed; no acute abnormalities ( see full reports) -Physical therapy/occupational therapy evaluation -Reviewed orthostatic VS, which were negative -Maintain systolic BP between 120-130's -Follow up cardiology recommendations -Lower extremity doppler reviewed; no evidence of DVT in bilateral lower extremities -EKG reviewed; revealed sinus rhythm with 1st degree AV block with fusion complexes; RBBB; inferior infarct (age undetermined) -CT Chest reviewed; excessive mediastinal and pericardial fat, minimal interstitial infiltrate seen in the periphery of both lungs however no alveolar infiltrate -CT Head reviewed; revealed no acute intracranial mass, hemorrhage or evidence of acute infarct Patient seen and case discussed/reviewed with attending, Dr. Mendosa <Dallas Mendosa - Last Filed: 12/28/16 11:01> Objective - Vital Signs/Intake and Output Vital Signs (last 24 hours): Temp Pulse Resp BP Pulse Ox 98.4 F 81 20 126/78 92 L 12/27/16 16:00 12/27/16 16:00 12/27/16 16:00 12/27/16 16:00 12/27/16 16:00 - Labs Labs: 12/27/16 05:30 12/27/16 05:30 PT 12.0 SECONDS (9.4-12.5) 12/25/16 12:15 INR 1.09 (0.93-1.08) H 12/25/16 12:15 APTT 31.0 Seconds (25.1-36.5) 12/25/16 12:15 Attending/Attestation - Attestation I have personally seen and examined this patient.: Yes I have fully participated in the care of the patient.: Yes I have reviewed all pertinent clinical information, including history, physical exam and plan: Yes
--- NOTE | 2016-12-27 13:27 | PN ---
DATE: 12/27/2016 PULMONARY PROGRESS NOTE SUBJECTIVE: The patient appears comfortable this morning. He is not short of breath at rest. PHYSICAL EXAMINATION: VITAL SIGNS: Temperature is 98.1, pulse is 54, respirations are 18, and blood pressure is 121/71. Oxygen saturation on room air is 98%. HEENT: Normocephalic and atraumatic. NECK: No JVD. CARDIOVASCULAR: Systolic ejection murmur at the lower left sternal border. No S3 gallop. LUNGS: Minimal crackles at the bases. Otherwise clear. EXTREMITIES: Mild edema. No cyanosis and no clubbing. Calves are nontender to palpation. GASTROINTESTINAL: Abdomen is soft, nontender and nondistended. Bowel sounds are positive. SKIN: No acute rash. NEUROLOGIC: Exam is limited at the present time. IMPRESSION: 1. Severe dizziness - resolved. 2. Rule out pneumonia. 3. Coronary artery disease. 4. Hypertension. 5. History of cerebrovascular accident. PLAN: The patient appears very comfortable this morning. He is not short of breath at rest. His dizziness has resolved. On physical exam, there is no significant bronchospasm noted. In addition, the oxygen saturation on room air is now 98%. As noted previously, the procalcitonin was negative. In addition, the high sensitivity CRP is also negative. The antibiotics have thus been discontinued by the medical team. I do advise repeating the CT scan of the chest - as an outpatient - for comparison. Inputs by Cardiology and Neurology are noted. Clinical status of the patient is significantly improved - compared to the initial presentation. I will discuss the above with Dr. Haley. Baldemar Sloan MD [facility]
[2016-12-27 16:46] VITALS: BP 126/78; PULSE 81; TEMP 98.4; O2SAT 92
--- NOTE | 2016-12-29 04:54 | CP.PCM.DIS ---
Provider - Provider Date of Admission: 12/25/16 13:52 Attending physician: Peng Haley MD Primary care physician: Peng Haley MD [facility] Course - Lab Results Lab Results: Micro Results 12/26/16 20:35 Stool C. difficile Antigen & Toxin A,B (M - Final Most Recent Lab Values WBC 8.0 10^3/ul (4.5-11.0) 12/27/16 05:30 RBC 4.81 10^6/uL (3.5-6.1) 12/27/16 05:30 Hgb 15.3 g/dL (14.0-18.0) 12/27/16 05:30 Hct 44.6 % (42.0-52.0) 12/27/16 05:30 MCV 92.7 fl (80.0-105.0) 12/27/16 05:30 MCH 31.8 pg (25.0-35.0) 12/27/16 05:30 MCHC 34.3 g/dl (31.0-37.0) 12/27/16 05:30 RDW 13.4 % (11.5-14.5) 12/27/16 05:30 Plt Count 179 10^3/uL (120.0-450.0) 12/27/16 05:30 MPV 9.8 fl (7.0-11.0) 12/27/16 05:30 Gran % 58.5 % (50.0-68.0) 12/27/16 05:30 Lymph % (Auto) 27.0 % (22.0-35.0) 12/27/16 05:30 [place] % (Auto) 9.7 % (1.0-6.0) H 12/27/16 05:30 Eos % (Auto) 4.5 % (1.5-5.0) 12/27/16 05:30 Baso % (Auto) 0.3 % (0.0-3.0) 12/27/16 05:30 Gran # 4.65 (1.4-6.5) 12/27/16 05:30 Lymph # 2.2 (1.2-3.4) 12/27/16 05:30 [place] # 0.8 (0.1-0.6) H 12/27/16 05:30 Eos # 0.4 (0.0-0.7) 12/27/16 05:30 Baso # 0.02 K/mm3 (0.0-2.0) 12/27/16 05:30 PT 12.0 SECONDS (9.4-12.5) 12/25/16 12:15 INR 1.09 (0.93-1.08) H 12/25/16 12:15 APTT 31.0 Seconds (25.1-36.5) 12/25/16 12:15 D-Dimer, Quantitative < 200 ng/mL (0-243) 12/25/16 12:15 Sodium 139 mmol/L (132-148) 12/27/16 05:30 Potassium 4.3 mmol/L (3.6-5.0) 12/27/16 05:30 Chloride 106 mmol/L (98-107) 12/27/16 05:30 Carbon Dioxide 23 mmol/L (21-33) 12/27/16 05:30 Anion Gap 15 (10-20) 12/27/16 05:30 BUN 19 mg/dL (7-21) 12/27/16 05:30 Creatinine 0.8 mg/dl (0.8-1.5) 12/27/16 05:30 Est GFR ( Amer) > 60 12/27/16 05:30 Est GFR (Non-Af Amer) > 60 12/27/16 05:30 Random Glucose 125 mg/dL (70-110) H 12/27/16 05:30 Hemoglobin A1c 6.8 % (4.2-6.5) H 12/27/16 07:30 Calcium 9.8 mg/dL (8.4-10.5) 12/27/16 05:30 Phosphorus 4.0 mg/dL (2.5-4.5) 12/27/16 05:30 Magnesium 1.7 mg/dL (1.7-2.2) 12/27/16 05:30 Total Bilirubin 0.9 mg/dL (0.2-1.3) 12/27/16 05:30 AST 27 U/L (17-59) 12/27/16 05:30 ALT 34 U/L (7-56) 12/27/16 05:30 Alkaline Phosphatase 53 U/L (38-126) 12/27/16 05:30 Lactate Dehydrogenase 421 U/L (333-699) 12/25/16 12:15 Total Creatine Kinase 77 U/L (35-230) 12/25/16 12:15 Troponin I < 0.01 ng/mL 12/25/16 12:15 C-React Prot High Sens 1.87 mg/L (1.00-3.00) 12/25/16 12:48 NT-Pro-B Natriuret Pep 77.4 pg/mL (0-450) 12/25/16 12:15 Total Protein 7.2 g/dL (5.8-8.3) 12/27/16 05:30 Albumin 4.1 g/dL (3.0-4.8) 12/27/16 05:30 Globulin 3.2 gm/dL 12/27/16 05:30 Albumin/Globulin Ratio 1.3 (1.1-1.8) 12/27/16 05:30 Triglycerides 112 mg/dL (35-160) 12/26/16 06:00 Cholesterol 130 mg/dL (130-200) 12/26/16 06:00 LDL Cholesterol Direct 67 mg/dL (0-129) 12/26/16 06:00 HDL Cholesterol 42 mg/dL (29-60) 12/26/16 06:00 Lipase 43 U/L (23-300) 12/25/16 12:15 Procalcitonin < 0.05 NG/ML (0.19-0.49) L 12/25/16 12:48 - Hospital Course Hospital Course: Patient is a 76 year old male with a past medical history of TIA, Alzheimer's, CAD s/p sextuple bypass surgery, hypertension, and hyperlipidemia who presents to [facility] ED on 12/25/16 with complaints of dizziness. During course of hospital visit, cardiology, neurology, and pulmonology were consulted. Imaging done in the ED included chest x-ray, CT chest, and CT head. Chest x-ray revealed what was thought to be a right pulmonary infiltrate, however chest CT ruled this diagnosis out stating the image was more likely to be due to large pericardial fat pad. CT head revealed no acute intracranial hemorrhage. From a cardiology standpoint, no further intervention was needed considering patient's echocardiogram results and negative ProBNP. Cardiology recommended further evaluation by means of stress test as outpatient. From a pulmonology standpoint , with chest ct being negative, O2% 98% on room air, negative CRP and procalcitonin, and lack of shortness of breath there was no further intervention needed form a pulmonology standpoint. From a neurology standpoint, considering all imaging including CT, MRI, and MRA were negative along with patient no longer having signs of dizziness there was no further intervention needed from a neurology standpoint. Discharge Exam - Head Exam Head Exam: ATRAUMATIC, NORMAL INSPECTION, NORMOCEPHALIC Discharge Plan - Follow Up Plan Condition: FAIR Disposition: HOME/ ROUTINE Instructions: Viral Pneumonia (DC), Dizziness (GEN) Additional Instructions: Patient discharged home and instructed to follow-up with Dr Haley within 1 week of discharge. Patient instructed to continue medications as prescribed. Return to the ED if experiencing dizziness, shortness of breath, chest pain, nausea/vomiting, and/or fever. Referrals: Peng Haley MD [Primary Care Provider] -
== END 2016-12-27 17:25 | disposition home or self-care (01) | DRG 69 ==
LOC: ED 11:55 → ERH 13:52 → 3RNO 20:46
PROVIDERS: ADMIT Internal Medicine; ATTEND Internal Medicine
DX: G45.0 Vertebro-basilar artery syndrome (principal); I13.0 Hypertensive heart and chronic kidney disease with heart failure and stage 1 through stage 4 chronic kidney disease, or unspecified chronic kidney disease; I50.9 Heart failure, unspecified; G30.9 Alzheimer's disease, unspecified; F02.80 Dementia in other diseases classified elsewhere, unspecified severity, without behavioral disturbance, psychotic disturbance, mood disturbance, and anxiety; E86.0 Dehydration; N18.9 Chronic kidney disease, unspecified; N40.0 Benign prostatic hyperplasia without lower urinary tract symptoms; I25.118 Atherosclerotic heart disease of native coronary artery with other forms of angina pectoris; E78.00 Pure hypercholesterolemia, unspecified; R42 Dizziness and giddiness; R91.8 Other nonspecific abnormal finding of lung field; E66.01 Morbid (severe) obesity due to excess calories; Z68.38 Body mass index [BMI] 38.0-38.9, adult; Z86.73 Personal history of transient ischemic attack (TIA), and cerebral infarction without residual deficits; Z95.1 Presence of aortocoronary bypass graft; Z87.01 Personal history of pneumonia (recurrent)

== ENCOUNTER 2018-01-10 13:35 | Emergency (ER) | payer MEDICARE ==
[2018-01-10 13:41] VITALS: BMI 37.1
[2018-01-10 13:43] VITALS: RESP 18; TEMP 98.6
[2018-01-10 14:45] LABS: BASO # 0.02 K/mm3 (0.0-2.0); BASO % 0.3 % (0.0-3.0); EOS # 0.2 (0.0-0.7); EOS % 2.5 % (1.5-5.0); GRAN # 4.67 (1.4-6.5); GRAN % 65.8 % (50.0-68.0); HEMOGLOBIN 15.4 g/dL (14.0-18.0); LYMPH # 1.5 (1.2-3.4); LYMPH % 20.6 % (22.0-35.0); MEAN CORPUSCULAR HEMOGLOBIN 31.6 pg (25.0-35.0); MEAN CORPUSCULAR HGB CONC 34.4 g/dl (31.0-37.0); MEAN PLATELET VOLUME 9.4 fl (7.0-11.0); MONO # 0.8 (0.1-0.6); MONO % 10.8 % (1.0-6.0); RBC 4.87 10^6/uL (3.5-6.1); RED CELL DISTRIBUTION WIDTH 13.3 % (11.5-14.5); WHITE BLOOD COUNT 7.1 10^3/uL (4.5-11.0)
[2018-01-10 14:55] LABS: INR 1.06; PROTHROMBIN TIME 12.1 SECONDS (9.4-12.5)
[2018-01-10 14:56] LABS: ALB/GLOB RATIO 1.3 (1.1-1.8); ALBUMIN 3.9 g/dL (3.0-4.8); ALT/SGPT 25 U/L (7-56); AST/SGOT 22 U/L (17-59); BLOOD UREA NITROGEN 20 mg/dL (7-21); CALCIUM 9.3 mg/dL (8.4-10.5); GFR NON-AFRICAN AMERICAN > 60
--- NOTE | 2018-01-10 15:01 | CT ---
Date of service: 01/10/2018 PROCEDURE: CT HEAD WITHOUT CONTRAST. HISTORY: head injury COMPARISON: 12/25/2016 CT TECHNIQUE: Axial computed tomography images were obtained through the head/brain without intravenous contrast. Radiation dose: Total exam DLP = 1046.01 mGy-cm. This CT exam was performed using one or more of the following dose reduction techniques: Automated exposure control, adjustment of the mA and/or kV according to patient size, and/or use of iterative reconstruction technique. FINDINGS: HEMORRHAGE: No intracranial hemorrhage. BRAIN: No mass effect or edema. Chronic microvascular changes are seen in the periventricular white matter. VENTRICLES: Unremarkable. No hydrocephalus. CALVARIUM: Unremarkable. PARANASAL SINUSES: Unremarkable as visualized. No significant inflammatory changes. MASTOID AIR CELLS: Unremarkable as visualized. No inflammatory changes. OTHER FINDINGS: None. IMPRESSION: No acute intracranial findings
[2018-01-10 15:30] VITALS: O2SAT 100
--- NOTE | 2018-01-10 15:31 | ED PDOC ---
Arrival/HPI - General Chief Complaint: Trauma Historian: Patient - History of Present Illness Narrative History of Present Illness (Text): 01/10/18 15:41 77yo male with pmhx of hypertension, CVA 2017, DM, anemia who was bib by EMS for scalp laceration s/p trauma this afternoon. Patient states he had a cramp on his left leg while ambulating, which caused him to fell backwards and hit his posterior head on the ground. He denies LOC. He is on anticoagulant. Denies dizziness, nausea, focal weakness, neck pain, any other complaint. PT notes that he is up to date with his TD vaccine. Past Medical History - Provider Review Nursing Documentation Reviewed: Yes - Infectious Disease Hx of Infectious Diseases: None - Tetanus Immunization Tetanus Immunization: Up to Date - Cardiac Hx Hypertension: Yes - Pulmonary Hx Respiratory Disorders: Yes Hx Bronchitis: Yes Hx Pneumonia: Yes - Neurological HX Cerebrovascular Accident: Yes (05/28, per pt) - HEENT Hx HEENT Disorder: Yes Hx Cataracts: Yes Hx Glaucoma: Yes - Renal Hx Renal Disorder: Yes Hx Kidney Stones: Yes - Endocrine/Metabolic Hx Diabetes Mellitus Type 2: Yes - Hematological/Oncological Hx Blood Disorders: Yes Hx Anemia: Yes - Integumentary Hx Dermatological Disorder: Yes (cellulitis) - Musculoskeletal/Rheumatological Hx Falls: Yes - Gastrointestinal Hx Gastrointestinal Disorders: Yes Hx Diverticulitis: Yes Hx Gastroesophageal Reflux: Yes - Genitourinary/Gynecological Hx Genitourinary Disorders: Yes Hx Prostate Problems: Yes - Psychiatric Hx Psychophysiologic Disorder: No Hx Substance Use: No - Surgical History Hx Coronary Artery Bypass Graft: Yes (6 vessel) - Anesthesia Hx Anesthesia Reactions: No Hx Malignant Hyperthermia: No - Suicidal Assessment Feels Threatened In Home Enviroment: No Family/Social History - Physician Review Nursing Documentation Reviewed: Yes Family/Social History: Unknown Family HX Smoking Status: Never Smoked Hx Alcohol Use: No Hx Substance Use: No Hx Substance Use Treatment: No Allergies/Home Meds Allergies/Adverse Reactions: Allergies milk Adverse Reaction (Verified 06/05/16 08:15) CONGESTION Home Medications: Home Meds Medication Instructions Recorded Confirmed RX: Aspirin [Lo-Dose Aspirin EC] 81 mg PO DAILY 12/25/16 01/07/17 RX: Atorvastatin [Lipitor] 40 mg pe PO DAILY 12/25/16 01/07/17 RX: Cholecalciferol [Vitamin D 5,000 iu PO DAILY 12/25/16 01/07/17 1000 IU] RX: Clopidogrel [Plavix] 75 mg PO DAILY 12/25/16 01/07/17 RX: Donepezil [Aricept] 10 mg PO DAILY 12/25/16 01/07/17 RX: Finasteride [Proscar] 5 mg PO DAILY 12/25/16 01/07/17 RX: Losartan [Cozaar] 100 mg PO DAILY 12/25/16 01/07/17 RX: Magnesium 250 mg PO DAILY 12/25/16 01/07/17 RX: Multivit-Min/FA/Lycopen/Lutein 1 tab PO DAILY 12/25/16 01/07/17 [Centrum Silver Men Tablet] RX: Potassium Chloride [Klor-Con 20 meq PO DAILY 12/25/16 01/07/17 M20] RX: Spironolactone [Aldactone] 25 mg PO BID 12/25/16 01/07/17 RX: Tamsulosin [Flomax] 0.4 mg PO BID 12/25/16 01/07/17 RX: l-Mefol/A-Cyst/Meb12/Algal Oil 1 tab PO DAILY 12/25/16 01/07/17 [Cerefolin Nac Caplet] Review of Systems - Physician Review All systems were reviewed & negative as marked: Yes - Review of Systems Constitutional: Normal Eyes: Normal ENT: Normal Respiratory: Normal Cardiovascular: Normal Gastrointestinal: Normal Genitourinary Male: Normal Musculoskeletal: Normal Skin: Laceration (posterior scalp) Neurological: Normal Endocrine: Normal Hemo/Lymphatic: Normal Psychiatric: Normal Physical Exam Vital Signs Reviewed: Yes Vital Signs Temp Pulse Resp BP Pulse Ox 01/10/18 13:41 98.6 F 88 18 136/84 99 Temperature: Afebrile Blood Pressure: Normal Pulse: Regular Respiratory Rate: Normal Appearance: Positive for: Well-Appearing, Non-Toxic, Comfortable Pain Distress: None Mental Status: Positive for: Alert and Oriented X 3 - Systems Exam Head: Present: Atraumatic, Normocephalic Pupils: Present: PERRL Extroacular Muscles: Present: EOMI Conjunctiva: Present: Normal Mouth: Present: Moist Mucous Membranes Neck: Present: Normal Range of Motion Respiratory/Chest: Present: Clear to Auscultation, Good Air Exchange. No: Respiratory Distress, Accessory Muscle Use Cardiovascular: Present: Regular Rate and Rhythm, Normal S1, S2. No: Murmurs Abdomen: No: Tenderness, Distention, Peritoneal Signs Back: Present: Normal Inspection Upper Extremity: Present: Normal Inspection. No: Cyanosis, Edema Lower Extremity: Present: Normal Inspection. No: Edema Neurological: Present: GCS=15, CN II-XII Intact, Speech Normal Skin: Present: Warm, Dry, Normal Color, Laceration (1.5cm laceration to the posterior scalp). No: Rashes Psychiatric: Present: Alert, Oriented x 3, Normal Insight, Normal Concentration Medical Decision Making ED Course and Treatment: 01/10/18 18:51 PT present to ED for stated history. He was AAO x3 in ED. Neurologically intact. Labs Head CT. while in ED patient began to complain of lower back pain. he reported history of chronic back pain secondary to spinal stenosis, but states he was in pain earlier today. He denies saddle anesthesia, focal weakness, abdominal pain, urinary/fecal incontinence, any other complaint. LS xray ordered Tramadol Wound was irrigated with NS and laceration was approximated with 4staples. Dressing applied. Head CT IMPRESSION: No acute intracranial findings LS IMPRESSION: No evidence of acute fracture or subluxation. No significant interval changes noted since the prior study. PT is up to date with his TD booster. All result was DW the pt and he was DC home with Tramadol Referred to his PMD - Lab Interpretations Lab Results: 01/10/18 14:30 01/10/18 14:30 Lab Results 01/10/18 14:30: Sodium 141, Potassium 4.0, Chloride 108 H, Carbon Dioxide 24, Anion Gap 14, BUN 20, Creatinine 0.7 L, Est GFR ( Amer) > 60, Est GFR (Non-Af Amer) > 60, Random Glucose 163 H, Calcium 9.3, Total Bilirubin 0.8, AST 22, ALT 25, Alkaline Phosphatase 56, Total Protein 7.0, Albumin 3.9, Globulin 3.1, Albumin/Globulin Ratio 1.3 01/10/18 14:30: PT 12.1, INR 1.06, APTT 29.0 01/10/18 14:30: WBC 7.1, RBC 4.87, Hgb 15.4, Hct 44.8, MCV 92.0, MCH 31.6, MCHC 34.4, RDW 13.3, Plt Count 194, MPV 9.4, Gran % 65.8, Lymph % (Auto) 20.6 L, [place] % (Auto) 10.8 H, Eos % (Auto) 2.5, Baso % (Auto) 0.3, Gran # 4.67, Lymph # (Auto) 1.5, [place] # (Auto) 0.8 H, Eos # (Auto) 0.2, Baso # (Auto) 0.02 - RAD Interpretation Radiology Orders: 01/10/18 14:15 HEAD W/O CONTRAST [CT] Stat Disposition/Present on Arrival - Present on Arrival Any Indicators Present on Arrival: No History of DVT/PE: No History of Uncontrolled Diabetes: No Urinary Catheter: No History of Decub. Ulcer: No History Surgical Site Infection Following: None - Disposition Have Diagnosis and Disposition been Completed?: Yes Diagnosis: Laceration, Head injury, Back pain Disposition: HOME/ ROUTINE Disposition Time: 16:30 Patient Plan: Discharge Condition: STABLE Discharge Instructions (ExitCare): Concussion in Adults, Laceration Repair With Elias (DC) Additional Instructions: Keep wound clean and dry Follow up with your Doctor in 6days for staple removal Return to ED for any new or worsening symptoms Prescriptions: RX: traMADol [Ultram] 50 mg PO Q8 #7 tab Referrals: Azul Reese MD [Medical Doctor] - Follow up with primary Forms: [facility] [employer] ([place])
[2018-01-10 17:21] VITALS: BP 128/68; PULSE 75
--- NOTE | 2018-01-10 17:23 | RAD ---
Date of service: 01/10/2018 PROCEDURE: Radiographs of the Lumbar Spine. HISTORY: back pain s/p trauma COMPARISON: Comparison is made to the previous study dated 05/29/2017 is FINDINGS: BONES: No evidence of new fracture or subluxation. DISC SPACES: Moderate degenerative disc changes. Marginal osteophyte formation are again noted. OTHER FINDINGS: None. IMPRESSION: No evidence of acute fracture or subluxation. No significant interval changes noted since the prior study.
== END 2018-01-10 17:25 | disposition home or self-care (01) ==
LOC: ED 13:35
DX: S01.01XA Laceration without foreign body of scalp, initial encounter (principal); W18.30XA Fall on same level, unspecified, initial encounter; E11.9 Type 2 diabetes mellitus without complications; I10 Essential (primary) hypertension; Z86.73 Personal history of transient ischemic attack (TIA), and cerebral infarction without residual deficits